=== PATIENT | female | born 1940 | race Caucasian/White ===

== ENCOUNTER → 2017-03-20 | Outpatient (CLI) | payer MEDICARE ==
[~2017-03-20] MED LIST: ACULAR 3ML 3 ML5 ML; ALPHAGAN 5 ML5 ML OP; ANTIVERT25 MG PO; ASCRIPTIN1 TA1 PO; BAYER ASPIRIN C81 MG PO; CALTRATE 600 +1 TA1 PO; CALTRATE 600600 MG PO; CARDIZEM; CARDIZEM CD240 MG PO; CELEXA40 MG PO; CHLORDIAZEPOXID1 CAP PO; CITALOPRAM40 MG PO; DILTIAZEM HYDR PO; GLUCOPHAGE500 MG PO; INDERAL XL80 MG PO; INSULIN SC; K-DUR20 MEQ PO; KEFLEX500 MG PO; LASIX40 MG PO; LUMIGAN 3 ML3 ML OPH; Lasix80 MG PO; METFORMIN500 MG PO; MINIPRESS2 M1; MINIPRESS2 M1 PO; NEURONTIN100 MG PO; NOVOLOG MIX 70/33 ML SC; OCUFLOX 0.3% 5 M5 ML; OMEPRAZOLE; OMEPRAZOLE20 MG PO; PRED FORTE 1 ML1 ML; PRINIVIL40 MG; PRINIVIL40 MG PO; SALICYLIC ACID; SIMVASTATIN20 MG PO; TIAZAC180 MG PO; TOPROL-XL50 MG PO; TRICOR145 MG PO; TYLENOL W/CODEI1 TA4 PO
== END | disposition home or self-care (01) ==
LOC: MAMMO 10:28
DX: Z12.31 Encounter for screening mammogram for malignant neoplasm of breast (principal)

== ENCOUNTER 2017-04-13 17:17 | Inpatient (IN) | payer MEDICARE ==
[~2017-04-13] VITALS: Ht 157.5 cm; Wt 71.8 kg
[2017-04-13 17:36] VITALS: BP 154/70
[2017-04-13 17:55] LABS: HEMATOCRIT 39.3 % (37.0-47.0); HEMOGLOBIN 12.9 g/dl (12.0-16.0); MEAN CELL VOLUME 81.7 fl (81.0-99.0); MEAN CORPUSCULAR HGB 26.8 pg (27.0-31.0); MEAN CORPUSCULAR HGB CONC 32.8 g/dl (33.0-37.0); MEAN PLATELET VOLUME 11.6 fl (9.6-12.3); PLATELET COUNT AUTOMATED 224 10*3/uL (130-400); RED BLOOD COUNT 4.81 10*6/uL (4.10-5.10); RED CELL DISTRI WIDTH 14.6 % (0-14.5); WHITE BLOOD COUNT 11.1 10*3/uL (4.8-10.8)
[2017-04-13 18:16] LABS: ALBUMIN 3.4 gm/dl (3.1-4.5); ALKALINE PHOSPHATASE 107 U/L (45-117); BUN 19 mg/dl (7-24); CHLORIDE 101 mmol/L (98-107); CREATININE 0.93 mg/dL (0.55-1.02); LIPASE 58 U/L (73-393); POTASSIUM 3.6 mmol/L (3.5-5.1); SGOT/AST 24 IU/L (3-35); SGPT/ALT 17 U/L (12-78); SODIUM 138 mmol/L (136-145); TOTAL PROTEIN 8.2 gm/dL (6.4-8.2)
[2017-04-13 18:17] LABS: PLATELET SUFFICIENCY NORMAL (NORMAL); TOTAL CELLS COUNTED 100 #CELLS
[2017-04-13 18:18] LABS: STOMATOCYTE FEW
[2017-04-13 18:19] LABS: TOXIC GRANULATION SLIGHT
--- NOTE | 2017-04-13 18:41 | NUR ---
PATIENT TO CT SCAN AT THIS TIME.
--- NOTE | 2017-04-13 18:41 | NUR ---
VERBAL ORDER TO NOT GIVEN HEPARIN UNTIL ABHISHEK DANIELS HAS SEEN HEAD CT SCAN RESULTS.
[2017-04-13 18:49] LABS: ACT PARTIAL THROMBO TIME 23.8 SECONDS (20.8-31.5); INTERNATIONAL NORM RATIO 1.1 (2.0-3.5)
--- NOTE | 2017-04-13 18:56 | NUR ---
PATIENT EARRINGS ARE IN PATIENTS ROOM IN CONTAINER AFTER SHE RETURNED FROM CT SCAN. ONCOMING NURSE POLO NICHOLAS NOTIFIED.
--- NOTE | 2017-04-13 18:57 | NUR ---
REPORT GIVEN TO POLO NICHOLAS AT THIS TIME. PATIENT RETURNS FROM CT SCAN AND IS IN ROOM.
[2017-04-13 20:00] VITALS: BP 113/50
[2017-04-13 20:06] LABS: BILIRUBIN NEGATIVE (NEGATIVE); BLOOD 2+ (NEGATIVE); CLARITY SL CLOUDY (CLEAR); COLOR YELLOW (YELLOW); GLUCOSE NEGATIVE (NEGATIVE); KETONE TRACE (NEGATIVE); LEUKO ESTERASE 2+ (NEGATIVE); NITRITE POSITIVE (NEGATIVE); PH 5.5 (5.0-9.0); SPECIFIC GRAVITY 1.025 (1.005-1.030); UROBILINOGEN 0.2 E.U./dl (0.2-1.0)
--- NOTE | 2017-04-13 20:12 | NUR ---
CALLED [facility] TO GIVE REPORT, TOLD PT TO BE HELD UNTIL CT REPORT IS IN COMPUTER
--- NOTE | 2017-04-13 20:13 | NUR ---
PATIENT IN GOWN, NO WOUNDS NOTED
[2017-04-13 20:35] LABS: BACTERIA 3+; RBC 16-20 rbc/hpf (0-2); WBC 41-50 wbc/hpf (0-5)
[2017-04-13 21:10] VITALS: BP 156/62
--- NOTE | 2017-04-13 21:10 | NUR ---
A 76, admitted to [facility], under the services of RAFI Dukes DO with a diagnosis of NSTEMI. Chief complaint is DECREASED APPETITE, NOT TAKING HOME MEDICATION, DAUGTER FELT PATIENT WAS CONFUSED AND CALLED EMS. Patient arrived via stretcher from ER. Monitor applied. Initial assessment completed. Vital signs taken and recorded. RAFI DUKES DO notified of admission to the unit. Orders received. See assessment for past medical history, medications and allergies. Patient and/or family oriented to unit. [facility] visitation policy reviewed. Clothing/patient valuable form completed. SHELBY ROMAN
[2017-04-13] MEDS ORDERED: LEVOTHYROXINE50 MCG PO (22:08)
[2017-04-13] MEDS ORDERED: CLOBETASOL PROP15 GM T (22:09)
[2017-04-13] MEDS ORDERED: CARTIA XT240 MG PO (22:09)
[2017-04-13] MEDS ORDERED: NEURONTIN300 MG PO (22:10)
[2017-04-13] MEDS ORDERED: AMARYL2 MG PO (22:10)
--- NOTE | 2017-04-13 22:10 | NUR ---
DR. BAILEY NOTIFIED MED REC IS COMPLETED, PATIENT IS AN INSULIN DIABETIC AND 2ND TROPONIN IS ALSO ELEVATED. NEW ORDERS RECEIVED. COBY BENTON RN
[2017-04-13] MEDS ORDERED: ASPIR 8181 MG PO (22:11)
[2017-04-13] MEDS ORDERED: CALCIUM 600 +1 EAC2 PO (22:12)
[2017-04-13] MEDS ORDERED: GAVISCON LIQUI355 ML PO (22:13)
[2017-04-13] MEDS ORDERED: ATORVASTATIN CA10 M1 PO (22:14)
[2017-04-13] MEDS ORDERED: METFORMIN HCL500 MG PO (22:14)
[2017-04-13] MEDS ORDERED: MECLIZINE HCL25 M2 PO (22:15)
[2017-04-13] MEDS ORDERED: NOVOLOG FL100 UNIT/1 SQ (22:16)
[2017-04-13] MEDS ORDERED: NOVOLOG MI100 UNIT/1 SQ ×2 (22:17→22:18)
[2017-04-13] MEDS ORDERED: OMEPRAZOLE D/R20 MG PO (22:18)
[2017-04-13] MEDS ORDERED: B121000 MCG/1 IM (22:20)
[2017-04-13] MEDS ORDERED: LOSARTAN POTASS50 M1 PO (22:23)
[2017-04-13 23:47] VITALS: BP 157/70
--- NOTE | 2017-04-14 00:30 | NUR ---
HEART RATE AND RESPIRATIONS INCREASING. TEMP OBTAINED, [address] BAILEY NOTIFIED OF CLINICAL CHANGES AND ELEVATED TROPONIN. NEW ORDERS RECEIVED. COBY BENTON RN
--- NOTE | 2017-04-14 01:20 | NUR ---
PT ESCORTED TO CT VIA WHEELCHAIR. MAX ASSIST TO TRANSFER TO WHEELCHAIR. PATIENT SLOW WITH VERBAL RESPONSES AND GENERALIZED WEAKNESS NOTED. COBY BENTON RN
--- NOTE | 2017-04-14 02:00 | NUR ---
POX 89-92% O2 @ 2LPM VIA NC APPLIED, POX INCREASED TO 96% WILL MONITOR. COBY BENTON RN
--- NOTE | 2017-04-14 02:16 | NUR ---
TEMP 99.8 ORALLY. HEART RATE LOW 100S, RESPIRATIONS 14-20. PATIENT MORE ALERT AND LUCID AT THIS TIME. TYLENOL EFFECTIVE FOR ELEVATED TEMP. WILL MONITOR. COBY BENTON RN
[2017-04-14 03:35] VITALS: BP 150/59
[2017-04-14 03:59] LABS: HEMATOCRIT 36.1 % (37.0-47.0); HEMOGLOBIN 11.9 g/dl (12.0-16.0); MEAN CELL VOLUME 82.2 fl (81.0-99.0); MEAN CORPUSCULAR HGB 27.1 pg (27.0-31.0); MEAN PLATELET VOLUME 12.1 fl (9.6-12.3); PLATELET COUNT AUTOMATED 188 10*3/uL (130-400); RED BLOOD COUNT 4.39 10*6/uL (4.10-5.10); RED CELL DISTRI WIDTH 14.6 % (0-14.5)
[2017-04-14 04:03] LABS: INTERNATIONAL NORM RATIO 1.1 (2.0-3.5)
--- NOTE | 2017-04-14 04:05 | NUR ---
PTT 32.2. HEPARIN DRIP INCREASED BY 2UNITS/KG/HR. NEW RATE 14 UNITS/HG/HOUR, 10.1 CC/HR. NEXT PTT ORDERED URGENTLY AT 1000. COBY BENTON RN
[2017-04-14 04:18] LABS: PLATELET SUFFICIENCY NORMAL (NORMAL); TOTAL CELLS COUNTED 100 #CELLS
[2017-04-14 04:26] LABS: ALBUMIN 2.9 gm/dl (3.1-4.5); BUN 17 mg/dl (7-24); CHLORIDE 101 mmol/L (98-107); CHOLESTEROL 128 mg/dL (<200); CREATININE 0.72 mg/dL (0.55-1.02); PHOSPHOROUS 2.7 mg/dL (2.5-4.9); POTASSIUM 3.2 mmol/L (3.5-5.1); SGOT/AST 18 IU/L (3-35); SGPT/ALT 15 U/L (12-78); SODIUM 139 mmol/L (136-145); TOTAL PROTEIN 7.2 gm/dL (6.4-8.2); TRIGLYCERIDES 179 mg/dl (<150); VLDL CHOLESTEROL 36 mg/dL (6-40)
[2017-04-14 04:32] LABS: ALKALINE PHOSPHATASE 90 U/L (45-117); FREE T4 1.12 ng/dl (0.76-1.46); HDL CHOLESTEROL 30 mg/dl (40-60); LDL CHOLESTEROL 62 mg/dL (9-159)
[2017-04-14 07:03] LABS: VITAMIN D, 25-HYDROXY 15.3 ng/mL (30-100)
--- NOTE | 2017-04-14 07:30 | NUR ---
DR. Stephanie WALKER NOTIFIED OF CT ABD/PELVIS REPORT. NO NEW ORDERS RECEIVED AT THIS TIME. COBY BENTON RN
[2017-04-14 08:00] VITALS: BP 145/68
--- NOTE | 2017-04-14 09:50 | NUR ---
REPORT TO CED AT [facility]
[2017-04-14] MEDS ORDERED: LOPRESSOR25 MG PO (10:14)
--- NOTE | 2017-04-14 10:41 | NUR ---
HEPARIN TITRATED TO 16 UNITS/KG
--- NOTE | 2017-04-14 11:23 | NUR ---
PT DISCHARGED TO [facility] TEAM HEPARIN DRIP INFUSING
== END 2017-04-14 11:23 | disposition short-term general hospital (02) | DRG 871 ==
LOC: ED 17:17 → EDHOLD 19:11 → ICCU 19:31
PROVIDERS: Hospitalist; Nurse Practitioner Family; ADMIT Internal Medicine
DX: A41.9 Sepsis, unspecified organism (principal); I21.4 Non-ST elevation (NSTEMI) myocardial infarction; E44.0 Moderate protein-calorie malnutrition; N12 Tubulo-interstitial nephritis, not specified as acute or chronic; N13.8 Other obstructive and reflux uropathy; R65.20 Severe sepsis without septic shock; E11.42 Type 2 diabetes mellitus with diabetic polyneuropathy; E11.65 Type 2 diabetes mellitus with hyperglycemia; E03.9 Hypothyroidism, unspecified; E78.5 Hyperlipidemia, unspecified; I10 Essential (primary) hypertension; E66.3 Overweight; N20.0 Calculus of kidney; B95.2 Enterococcus as the cause of diseases classified elsewhere; E87.6 Hypokalemia; E55.9 Vitamin D deficiency, unspecified; K57.90 Diverticulosis of intestine, part unspecified, without perforation or abscess without bleeding; E53.8 Deficiency of other specified B group vitamins; Z79.82 Long term (current) use of aspirin; Z79.4 Long term (current) use of insulin; Z88.1 Allergy status to other antibiotic agents; Z79.899 Other long term (current) drug therapy; Z82.3 Family history of stroke; Z90.710 Acquired absence of both cervix and uterus; Z98.51 Tubal ligation status; Z82.49 Family history of ischemic heart disease and other diseases of the circulatory system; Z83.3 Family history of diabetes mellitus; Z68.28 Body mass index [BMI] 28.0-28.9, adult

== ENCOUNTER → 2018-10-22 | Outpatient (CLI) | payer MEDICARE ==
[~2018-10-22] MED LIST changes: +AMARYL2 MG PO; +ASPIR 8181 MG PO; +ATORVASTATIN CA10 M1 PO; +B121000 MCG/1 IM; +CALCIUM 600 +1 EAC2 PO; +CARTIA XT240 MG PO; +CLOBETASOL PROP15 GM T; +GAVISCON LIQUI355 ML PO; +LEVOTHYROXINE50 MCG PO; +LOPRESSOR25 MG PO; +LOSARTAN POTASS50 M1 PO; +MECLIZINE HCL25 M2 PO; +METFORMIN HCL500 MG PO; +NEURONTIN300 MG PO; +NOVOLOG FL100 UNIT/1 SQ; +NOVOLOG MI100 UNIT/1 SQ; +OMEPRAZOLE D/R20 MG PO
== END | disposition home or self-care (01) ==
LOC: LAB 15:11
DX: H53.2 Diplopia (principal)

== ENCOUNTER 2020-03-17 00:09 | Inpatient (IN) | payer MEDICARE ==
[~2020-03-17] VITALS: Ht 157.4 cm; Wt 73.0 kg
[2020-03-17] VITALS (17 sets, daily range): BP systolic 103–180; BP diastolic 31–74
[2020-03-17 00:43] LABS: MEAN CELL VOLUME 123.9 fl (81.0-99.0); MEAN CORPUSCULAR HGB 38.4 pg (27.0-31.0); PLATELET COUNT AUTOMATED 345 10*3/uL (130-400); RED BLOOD COUNT 1.59 10*6/uL (4.10-5.10); WHITE BLOOD COUNT 24.3 10*3/uL (4.8-10.8)
[2020-03-17 00:49] LABS: HEMATOCRIT 19.7 % (37.0-47.0)
[2020-03-17 01:00] LABS: ALBUMIN 3.7 gm/dl (3.1-4.5); ALKALINE PHOSPHATASE 64 U/L (45-117); BUN 38 mg/dl (7-24); CHLORIDE 106 mmol/L (98-107); POTASSIUM 4.3 mmol/L (3.5-5.1); SGOT/AST 9 IU/L (3-35); SGPT/ALT 14 U/L (12-78); SODIUM 139 mmol/L (136-145); TOTAL PROTEIN 8.2 gm/dL (6.4-8.2)
[2020-03-17 01:01] LABS: TROPONIN I < 0.015 ng/ml (<0.045)
[2020-03-17 01:03] LABS: PLATELET SUFFICIENCY NORMAL (NORMAL); TOTAL CELLS COUNTED 100 #CELLS
[2020-03-17 01:16] LABS: ACT PARTIAL THROMBO TIME 32.8 SECONDS (20.0-32.1); INTERNATIONAL NORM RATIO 2.7 (2.0-3.5)
[2020-03-17 07:24] LABS: HEMATOCRIT 25.8 % (37.0-47.0); MEAN CORPUSCULAR HGB 36.2 pg (27.0-31.0); MEAN CORPUSCULAR HGB CONC 31.4 g/dl (33.0-37.0); MEAN PLATELET VOLUME 11.4 fl (9.6-12.3); PLATELET COUNT AUTOMATED 334 10*3/uL (130-400); RED BLOOD COUNT 2.24 10*6/uL (4.10-5.10); RED CELL DISTRI WIDTH 24.4 % (0-14.5); WHITE BLOOD COUNT 28.9 10*3/uL (4.8-10.8)
[2020-03-17 07:25] LABS: MEAN CELL VOLUME 115.2 fl (81.0-99.0)
[2020-03-17 08:16] LABS: OVALOCYTES FEW; PLATELET SUFFICIENCY NORMAL (NORMAL); ROULEAUX SLIGHT; TOTAL CELLS COUNTED 100 #CELLS
[2020-03-17 08:17] LABS: BURR CELLS FEW; SCHISTOCYTES FEW
[2020-03-17 12:27] LABS: BILIRUBIN Negative (Negative); BLOOD 2+ (Negative); CLARITY Turbid (Clear); COLOR Yellow (Yellow); GLUCOSE Negative (Negative); KETONE Negative (Negative); LEUKO ESTERASE 3+ (Negative); NITRITE Positive (Negative); UROBILINOGEN 0.2 E.U./dl (0.0-1.0)
[2020-03-17 12:32] LABS: BACTERIA 4+; RBC TNTC rbc/hpf (0-2)
[2020-03-17 12:33] LABS: WBC TNTC wbc/hpf (0-5)
[2020-03-17 14:52] LABS: CREATININE 1.19 mg/dL (0.55-1.02); POTASSIUM 3.9 mmol/L (3.5-5.1)
[2020-03-17 15:51] LABS: INTERNATIONAL NORM RATIO 2.7 (2.0-3.5)
[2020-03-18] VITALS (8 sets, daily range): BP systolic 123–160; BP diastolic 45–82
[2020-03-18 07:02] LABS: HEMATOCRIT 22.6 % (37.0-47.0); MEAN CELL VOLUME 114.1 fl (81.0-99.0); MEAN CORPUSCULAR HGB 35.4 pg (27.0-31.0); MEAN PLATELET VOLUME 11.2 fl (9.6-12.3); PLATELET COUNT AUTOMATED 283 10*3/uL (130-400); RED BLOOD COUNT 1.98 10*6/uL (4.10-5.10); RED CELL DISTRI WIDTH 24.6 % (0-14.5); WHITE BLOOD COUNT 34.4 10*3/uL (4.8-10.8)
[2020-03-18 07:27] LABS: CREATININE 1.37 mg/dL (0.55-1.02); POTASSIUM 4.1 mmol/L (3.5-5.1)
[2020-03-18 07:56] LABS: PLATELET SUFFICIENCY NORMAL (NORMAL); TOTAL CELLS COUNTED 100 #CELLS
[2020-03-18] MEDS ORDERED: ATORVASTATIN CA40 M1 PO (22:39)
[2020-03-18] MEDS ORDERED: EUTHYROX50 MCG PO (22:39)
[2020-03-18] MEDS ORDERED: FUROSEMIDE20 M1 PO (22:41)
[2020-03-18] MEDS ORDERED: OMEPRAZOLE MAGN20 MG PO (22:43)
[2020-03-18] MEDS ORDERED: WARFARIN SOD2 MG PO (22:44)
[2020-03-18] MEDS ORDERED: METOPROLOL TART50 M1 PO (22:45)
[2020-03-18] MEDS ORDERED: NEURONTIN300 MG PO (23:04)
[2020-03-19] VITALS (9 sets, daily range): BP systolic 136–179; BP diastolic 58–78
[2020-03-19 05:50] LABS: CREATININE 1.26 mg/dL (0.55-1.02)
[2020-03-19 06:30] LABS: HEMATOCRIT 21.6 % (37.0-47.0); MEAN CELL VOLUME 116.1 fl (81.0-99.0); MEAN CORPUSCULAR HGB 35.5 pg (27.0-31.0); MEAN CORPUSCULAR HGB CONC 30.6 g/dl (33.0-37.0); MEAN PLATELET VOLUME 12.6 fl (9.6-12.3); PLATELET COUNT AUTOMATED 281 10*3/uL (130-400); RED BLOOD COUNT 1.86 10*6/uL (4.10-5.10); RED CELL DISTRI WIDTH 24.3 % (0-14.5); WHITE BLOOD COUNT 30.1 10*3/uL (4.8-10.8)
[2020-03-19 07:07] LABS: PLATELET SUFFICIENCY NORMAL (NORMAL); TOTAL CELLS COUNTED 100 #CELLS; TOXIC GRANULATION SLIGHT
[2020-03-19 07:08] LABS: ROULEAUX MODERATE; STOMATOCYTE FEW
[2020-03-19 19:45] LABS: HEMATOCRIT 25.6 % (37.0-47.0); MEAN CORPUSCULAR HGB 33.9 pg (27.0-31.0); PLATELET COUNT AUTOMATED 286 10*3/uL (130-400); RED BLOOD COUNT 2.42 10*6/uL (4.10-5.10); RED CELL DISTRI WIDTH 27.1 % (0-14.5)
[2020-03-19 19:49] LABS: MEAN CELL VOLUME 105.8 fl (81.0-99.0)
[2020-03-19 20:20] LABS: TOTAL CELLS COUNTED 100 #CELLS
[2020-03-19 20:21] LABS: PLATELET SUFFICIENCY NORMAL (NORMAL)
[2020-03-19 20:22] LABS: BURR CELLS FEW
[2020-03-20] VITALS: BP 128/67
[2020-03-20 05:51] LABS: CREATININE 1.14 mg/dL (0.55-1.02); POTASSIUM 4.1 mmol/L (3.5-5.1)
[2020-03-20 06:04] LABS: HEMATOCRIT 24.9 % (37.0-47.0); MEAN CELL VOLUME 108.3 fl (81.0-99.0); MEAN CORPUSCULAR HGB 34.3 pg (27.0-31.0); MEAN CORPUSCULAR HGB CONC 31.7 g/dl (33.0-37.0); MEAN PLATELET VOLUME 12.8 fl (9.6-12.3); PLATELET COUNT AUTOMATED 270 10*3/uL (130-400); RED CELL DISTRI WIDTH 27.1 % (0-14.5); WHITE BLOOD COUNT 18.1 10*3/uL (4.8-10.8)
[2020-03-20 06:30] LABS: PLATELET SUFFICIENCY NORMAL (NORMAL); TOTAL CELLS COUNTED 100 #CELLS
[2020-03-20 06:31] LABS: POLYCHROMASIA SLIGHT; ROULEAUX SLIGHT
[2020-03-20 07:45] VITALS: BP 168/74
[2020-03-20 12:00] VITALS: BP 174/70
[2020-03-20 16:00] VITALS: BP 159/70; BP 164/68
[2020-03-20 20:00] VITALS: BP 162/84
[2020-03-21 04:00] VITALS: BP 162/84
[2020-03-21 06:37] LABS: HEMATOCRIT 27.7 % (37.0-47.0); MEAN CELL VOLUME 110.4 fl (81.0-99.0); MEAN CORPUSCULAR HGB 33.9 pg (27.0-31.0); MEAN CORPUSCULAR HGB CONC 30.7 g/dl (33.0-37.0); MEAN PLATELET VOLUME 12.3 fl (9.6-12.3); PLATELET COUNT AUTOMATED 246 10*3/uL (130-400); RED BLOOD COUNT 2.51 10*6/uL (4.10-5.10); RED CELL DISTRI WIDTH 25.6 % (0-14.5); WHITE BLOOD COUNT 13.4 10*3/uL (4.8-10.8)
[2020-03-21 07:00] LABS: PLATELET SUFFICIENCY NORMAL (NORMAL); POLYCHROMASIA SLIGHT; TOTAL CELLS COUNTED 100 #CELLS
[2020-03-21 07:01] LABS: ROULEAUX SLIGHT; STOMATOCYTE FEW
[2020-03-21 08:10] LABS: CHLORIDE 114 mmol/L (98-107); CREATININE 0.94 mg/dL (0.55-1.02); POTASSIUM 3.6 mmol/L (3.5-5.1); SODIUM 145 mmol/L (136-145)
[2020-03-21 08:11] LABS: BUN 25 mg/dl (7-24)
[2020-03-21 08:12] VITALS: BP 179/73
[2020-03-21 10:35] LABS: INTERNATIONAL NORM RATIO 4.1 (2.0-3.5)
[2020-03-21 12:00] VITALS: BP 162/70
[2020-03-21 15:30] LABS: INTERNATIONAL NORM RATIO 4.2 (2.0-3.5)
[2020-03-21 16:00] VITALS: BP 165/74
[2020-03-21 20:00] VITALS: BP 173/81
[2020-03-22] VITALS: BP 170/63
[2020-03-22 06:24] LABS: ALBUMIN 2.7 gm/dl (3.1-4.5); ALKALINE PHOSPHATASE 66 U/L (45-117); BUN 22 mg/dl (7-24); CHLORIDE 111 mmol/L (98-107); CREATININE 0.93 mg/dL (0.55-1.02); POTASSIUM 3.6 mmol/L (3.5-5.1); SGOT/AST 12 IU/L (3-35); SGPT/ALT 14 U/L (12-78); SODIUM 144 mmol/L (136-145); TOTAL PROTEIN 6.8 gm/dL (6.4-8.2)
[2020-03-22 06:35] LABS: MEAN CORPUSCULAR HGB 33.3 pg (27.0-31.0); RED BLOOD COUNT 2.58 10*6/uL (4.10-5.10)
[2020-03-22 06:36] LABS: HEMATOCRIT 28.2 % (37.0-47.0); MEAN CELL VOLUME 109.3 fl (81.0-99.0); MEAN CORPUSCULAR HGB CONC 30.5 g/dl (33.0-37.0); MEAN PLATELET VOLUME 12.1 fl (9.6-12.3); PLATELET COUNT AUTOMATED 246 10*3/uL (130-400); RED CELL DISTRI WIDTH 23.3 % (0-14.5); WHITE BLOOD COUNT 13.4 10*3/uL (4.8-10.8)
[2020-03-22 06:42] LABS: INTERNATIONAL NORM RATIO 4.4 (2.0-3.5)
[2020-03-22 07:18] LABS: ATYPICAL LYMPHS 1 % (0-0); PLATELET SUFFICIENCY NORMAL (NORMAL); TOTAL CELLS COUNTED 100 #CELLS
[2020-03-22 08:00] VITALS: BP 136/52
[2020-03-22 12:00] VITALS: BP 137/53
[2020-03-22 16:00] VITALS: BP 152/67
[2020-03-22 20:00] VITALS: BP 159/73
[2020-03-23] VITALS (9 sets, daily range): BP systolic 98–147; BP diastolic 38–92
[2020-03-23 07:17] LABS: INTERNATIONAL NORM RATIO 1.2 (2.0-3.5)
[2020-03-23 08:14] LABS: HEMATOCRIT 28.6 % (37.0-47.0); MEAN CELL VOLUME 107.9 fl (81.0-99.0); MEAN CORPUSCULAR HGB 32.8 pg (27.0-31.0); MEAN CORPUSCULAR HGB CONC 30.4 g/dl (33.0-37.0); MEAN PLATELET VOLUME 12.4 fl (9.6-12.3); PLATELET COUNT AUTOMATED 245 10*3/uL (130-400); RED BLOOD COUNT 2.65 10*6/uL (4.10-5.10); RED CELL DISTRI WIDTH 22.3 % (0-14.5); WHITE BLOOD COUNT 15.2 10*3/uL (4.8-10.8)
[2020-03-23 08:53] LABS: PLATELET SUFFICIENCY NORMAL (NORMAL); TOTAL CELLS COUNTED 100 #CELLS
[2020-03-24] VITALS: BP 129/42
[2020-03-24 06:09] LABS: BUN 20 mg/dl (7-24); CHLORIDE 108 mmol/L (98-107); CREATININE 0.94 mg/dL (0.55-1.02); POTASSIUM 2.9 mmol/L (3.5-5.1); SODIUM 143 mmol/L (136-145)
[2020-03-24 06:16] LABS: HEMATOCRIT 26.5 % (37.0-47.0); MEAN CELL VOLUME 108.6 fl (81.0-99.0); MEAN CORPUSCULAR HGB 33.6 pg (27.0-31.0); MEAN CORPUSCULAR HGB CONC 30.9 g/dl (33.0-37.0); MEAN PLATELET VOLUME 12.5 fl (9.6-12.3); PLATELET COUNT AUTOMATED 231 10*3/uL (130-400); RED BLOOD COUNT 2.44 10*6/uL (4.10-5.10); RED CELL DISTRI WIDTH 21.5 % (0-14.5)
[2020-03-24 06:23] LABS: INTERNATIONAL NORM RATIO 1.1 (2.0-3.5)
[2020-03-24 06:43] LABS: TOTAL CELLS COUNTED 100 #CELLS
[2020-03-24 06:44] LABS: OVALOCYTES FEW; PLATELET SUFFICIENCY NORMAL (NORMAL); STOMATOCYTE FEW
[2020-03-24 08:00] VITALS: BP 130/52
[2020-03-24 12:00] VITALS: BP 128/56
[2020-03-24 16:00] VITALS: BP 116/64
[2020-03-24 20:00] VITALS: BP 154/58
[2020-03-25] VITALS: BP 144/53
[2020-03-25 06:48] LABS: HEMATOCRIT 25.5 % (37.0-47.0); MEAN CELL VOLUME 107.1 fl (81.0-99.0); MEAN CORPUSCULAR HGB CONC 31.8 g/dl (33.0-37.0); MEAN PLATELET VOLUME 11.4 fl (9.6-12.3); PLATELET COUNT AUTOMATED 204 10*3/uL (130-400); RED BLOOD COUNT 2.38 10*6/uL (4.10-5.10); RED CELL DISTRI WIDTH 21.3 % (0-14.5); WHITE BLOOD COUNT 12.2 10*3/uL (4.8-10.8)
[2020-03-25 06:59] LABS: INTERNATIONAL NORM RATIO 1.1 (2.0-3.5)
[2020-03-25 07:07] LABS: BUN 14 mg/dl (7-24); CHLORIDE 109 mmol/L (98-107); CREATININE 0.81 mg/dL (0.55-1.02); POTASSIUM 3.3 mmol/L (3.5-5.1); SODIUM 142 mmol/L (136-145)
[2020-03-25 07:41] LABS: PLATELET SUFFICIENCY NORMAL (NORMAL); STOMATOCYTE FEW; TOTAL CELLS COUNTED 100 #CELLS
[2020-03-25 07:42] LABS: OVALOCYTES FEW; TOXIC GRANULATION SLIGHT
[2020-03-25 08:15] VITALS: BP 132/62
[2020-03-25 12:00] VITALS: BP 148/54
[2020-03-25 16:00] VITALS: BP 149/74
[2020-03-25 20:00] VITALS: BP 144/51
[2020-03-26] VITALS: BP 154/53
[2020-03-26 07:14] LABS: HEMATOCRIT 25.6 % (37.0-47.0); MEAN CELL VOLUME 109.4 fl (81.0-99.0); MEAN CORPUSCULAR HGB 33.8 pg (27.0-31.0); MEAN CORPUSCULAR HGB CONC 30.9 g/dl (33.0-37.0); MEAN PLATELET VOLUME 12.1 fl (9.6-12.3); PLATELET COUNT AUTOMATED 190 10*3/uL (130-400); RED BLOOD COUNT 2.34 10*6/uL (4.10-5.10); RED CELL DISTRI WIDTH 21.6 % (0-14.5); WHITE BLOOD COUNT 9.4 10*3/uL (4.8-10.8)
[2020-03-26 07:26] LABS: INTERNATIONAL NORM RATIO 1.1 (2.0-3.5)
[2020-03-26 07:34] LABS: BUN 13 mg/dl (7-24); CHLORIDE 108 mmol/L (98-107); POTASSIUM 4.2 mmol/L (3.5-5.1); SODIUM 141 mmol/L (136-145)
[2020-03-26 07:36] LABS: OVALOCYTES FEW; PLATELET SUFFICIENCY NORMAL (NORMAL); ROULEAUX SLIGHT; STOMATOCYTE FEW; TOTAL CELLS COUNTED 100 #CELLS
[2020-03-26 07:37] LABS: CREATININE 0.87 mg/dL (0.55-1.02); TOXIC GRANULATION SLIGHT
[2020-03-26 08:00] VITALS: BP 137/52
[2020-03-26 12:00] VITALS: BP 131/44
[2020-03-26 16:00] VITALS: BP 126/51
[2020-03-26 20:00] VITALS: BP 149/51
[2020-03-27] VITALS: BP 152/52
[2020-03-27 07:31] LABS: HEMATOCRIT 25.7 % (37.0-47.0); MEAN CELL VOLUME 109.8 fl (81.0-99.0); MEAN CORPUSCULAR HGB 33.8 pg (27.0-31.0); MEAN CORPUSCULAR HGB CONC 30.7 g/dl (33.0-37.0); MEAN PLATELET VOLUME 12.6 fl (9.6-12.3); PLATELET COUNT AUTOMATED 184 10*3/uL (130-400); RED BLOOD COUNT 2.34 10*6/uL (4.10-5.10); RED CELL DISTRI WIDTH 21.2 % (0-14.5); WHITE BLOOD COUNT 7.5 10*3/uL (4.8-10.8)
[2020-03-27 07:40] LABS: INTERNATIONAL NORM RATIO 1.1 (2.0-3.5)
[2020-03-27 07:48] LABS: BUN 13 mg/dl (7-24); CHLORIDE 106 mmol/L (98-107); CREATININE 0.83 mg/dL (0.55-1.02); POTASSIUM 3.8 mmol/L (3.5-5.1); SODIUM 139 mmol/L (136-145)
[2020-03-27 07:55] LABS: PLATELET SUFFICIENCY NORMAL (NORMAL); ROULEAUX SLIGHT; STOMATOCYTE FEW; TOTAL CELLS COUNTED 100 #CELLS; TOXIC GRANULATION SLIGHT
[2020-03-27 08:00] VITALS: BP 124/47
[2020-03-27 12:00] VITALS: BP 118/46
[2020-03-27 16:00] VITALS: BP 119/43
[2020-03-27 20:00] VITALS: BP 131/44
[2020-03-28] VITALS: BP 118/43
[2020-03-28 07:05] LABS: BASO % 0.1 % (0.0-1.0); EOS # 0.2 10*3/uL (0.0-0.4); EOS % 3.1 % (1.0-4.0); HEMATOCRIT 24.2 % (37.0-47.0); LYMPH # 1.3 10*3/uL (1.3-4.4); LYMPH % 17.4 % (27.0-41.0); MEAN CORPUSCULAR HGB 34.5 pg (27.0-31.0); MEAN CORPUSCULAR HGB CONC 31.4 g/dl (33.0-37.0); MEAN PLATELET VOLUME 12.4 fl (9.6-12.3); MONO # 1.7 10*3/uL (0.1-1.0); MONO % 23.2 % (3.0-9.0); NEUT # 3.7 10*3/uL (2.3-7.9); NEUT % 50.4 % (47.0-73.0); PLATELET COUNT AUTOMATED 184 10*3/uL (130-400); RED CELL DISTRI WIDTH 21.2 % (0-14.5); WHITE BLOOD COUNT 7.4 10*3/uL (4.8-10.8)
[2020-03-28 07:24] LABS: INTERNATIONAL NORM RATIO 1.4 (2.0-3.5)
[2020-03-28 08:00] VITALS: BP 119/42
[2020-03-28 08:24] LABS: ROULEAUX SLIGHT; TOTAL CELLS COUNTED 100 #CELLS
[2020-03-28 08:25] LABS: PLATELET SUFFICIENCY NORMAL (NORMAL); POLYCHROMASIA SLIGHT
[2020-03-28 12:00] VITALS: BP 118/50
[2020-03-28 16:00] VITALS: BP 104/82
[2020-03-28 20:00] VITALS: BP 132/97
[2020-03-29] VITALS (11 sets, daily range): BP systolic 120–144; BP diastolic 38–50
[2020-03-29 07:04] LABS: HEMATOCRIT 23.1 % (37.0-47.0); MEAN CORPUSCULAR HGB 33.8 pg (27.0-31.0); MEAN CORPUSCULAR HGB CONC 30.7 g/dl (33.0-37.0); MEAN PLATELET VOLUME 12.5 fl (9.6-12.3); PLATELET COUNT AUTOMATED 162 10*3/uL (130-400); RED CELL DISTRI WIDTH 20.8 % (0-14.5)
[2020-03-29 07:12] LABS: INTERNATIONAL NORM RATIO 1.9 (2.0-3.5)
[2020-03-29 07:37] LABS: PLATELET SUFFICIENCY NORMAL (NORMAL); TOTAL CELLS COUNTED 100 #CELLS
[2020-03-30] VITALS: BP 146/52
[2020-03-30 06:37] LABS: HEMATOCRIT 26.4 % (37.0-47.0); MEAN CORPUSCULAR HGB 33.5 pg (27.0-31.0); MEAN CORPUSCULAR HGB CONC 31.8 g/dl (33.0-37.0); MEAN PLATELET VOLUME 12.6 fl (9.6-12.3); PLATELET COUNT AUTOMATED 157 10*3/uL (130-400); RED BLOOD COUNT 2.51 10*6/uL (4.10-5.10); RED CELL DISTRI WIDTH 20.7 % (0-14.5); WHITE BLOOD COUNT 5.1 10*3/uL (4.8-10.8)
[2020-03-30 06:39] LABS: MEAN CELL VOLUME 105.2 fl (81.0-99.0)
[2020-03-30 06:41] LABS: INTERNATIONAL NORM RATIO 2.2 (2.0-3.5)
[2020-03-30 06:56] LABS: PLATELET SUFFICIENCY NORMAL (NORMAL); TOTAL CELLS COUNTED 100 #CELLS
[2020-03-30 08:00] VITALS: BP 142/50
[2020-03-30] MEDS ORDERED: JANTOVEN4 M1 PO (10:54)
[2020-03-30 12:00] VITALS: BP 135/43
[2020-03-30] MEDS ORDERED: PANTOPRAZOLE SO40 MG PO (13:59)
== END 2020-03-30 15:00 | disposition home or self-care (01) | DRG 871 ==
LOC: ED 00:09 → 4E 01:54 → EDHOLD 01:54 → 4E 18:04
PROVIDERS: Hospitalist; Internal Medicine; Registered Nurse; Student in an Organized Health Care Education/Training Program; ADMIT Family Medicine; ATTEND Family Medicine
PROC: 30233N1 Transfusion of Nonautologous Red Blood Cells into Peripheral Vein, Percutaneous Approach (ICD-10-PCS; principal; 2020-03-17)
PROC: 0DB78ZX Excision of Stomach, Pylorus, Via Natural or Artificial Opening Endoscopic, Diagnostic (ICD-10-PCS; 2020-03-18)
PROC: 0DJD8ZZ Inspection of Lower Intestinal Tract, Via Natural or Artificial Opening Endoscopic (ICD-10-PCS; 2020-03-23)
DX: A41.9 Sepsis, unspecified organism (principal); J96.01 Acute respiratory failure with hypoxia; N17.0 Acute kidney failure with tubular necrosis; G93.41 Metabolic encephalopathy; K29.71 Gastritis, unspecified, with bleeding; K25.4 Chronic or unspecified gastric ulcer with hemorrhage; K20.91 Esophagitis, unspecified with bleeding; K57.91 Diverticulosis of intestine, part unspecified, without perforation or abscess with bleeding; D62 Acute posthemorrhagic anemia; N39.0 Urinary tract infection, site not specified; I16.1 Hypertensive emergency; E87.0 Hyperosmolality and hypernatremia; I10 Essential (primary) hypertension; E78.5 Hyperlipidemia, unspecified; E03.9 Hypothyroidism, unspecified; E66.3 Overweight; R65.20 Severe sepsis without septic shock; R79.1 Abnormal coagulation profile; E87.6 Hypokalemia; I25.10 Atherosclerotic heart disease of native coronary artery without angina pectoris; E11.65 Type 2 diabetes mellitus with hyperglycemia; K44.9 Diaphragmatic hernia without obstruction or gangrene; E11.42 Type 2 diabetes mellitus with diabetic polyneuropathy; Z20.828 Contact with and (suspected) exposure to other viral communicable diseases; Z79.4 Long term (current) use of insulin; Z95.1 Presence of aortocoronary bypass graft; Z88.1 Allergy status to other antibiotic agents; Z88.8 Allergy status to other drugs, medicaments and biological substances; I25.2 Old myocardial infarction; Z90.710 Acquired absence of both cervix and uterus; Z98.51 Tubal ligation status; Z83.3 Family history of diabetes mellitus; Z82.49 Family history of ischemic heart disease and other diseases of the circulatory system; Z82.3 Family history of stroke; Z79.82 Long term (current) use of aspirin; Z79.899 Other long term (current) drug therapy; Z87.442 Personal history of urinary calculi; Z68.28 Body mass index [BMI] 28.0-28.9, adult

== ENCOUNTER 2020-03-30 18:27 | Observation (INO) | payer MEDICARE ==
[~2020-03-30] VITALS: Ht 157.5 cm; Wt 71.4 kg
[~2020-03-30 18:27] MED LIST changes: +ATORVASTATIN CA40 M1 PO; +EUTHYROX50 MCG PO; +FUROSEMIDE20 M1 PO; +JANTOVEN4 M1 PO; +METOPROLOL TART50 M1 PO; +OMEPRAZOLE MAGN20 MG PO; +PANTOPRAZOLE SO40 MG PO; +WARFARIN SOD2 MG PO
[2020-03-30 18:28] VITALS: BP 156/50
[2020-03-30 19:12] LABS: HEMATOCRIT 25.2 % (37.0-47.0); MEAN CELL VOLUME 103.7 fl (81.0-99.0); MEAN CORPUSCULAR HGB 32.5 pg (27.0-31.0); MEAN CORPUSCULAR HGB CONC 31.3 g/dl (33.0-37.0); MEAN PLATELET VOLUME 11.6 fl (9.6-12.3); PLATELET COUNT AUTOMATED 141 10*3/uL (130-400); RED BLOOD COUNT 2.43 10*6/uL (4.10-5.10); RED CELL DISTRI WIDTH 20.3 % (0-14.5); WHITE BLOOD COUNT 4.5 10*3/uL (4.8-10.8)
[2020-03-30 19:29] LABS: ALBUMIN 2.7 gm/dl (3.1-4.5); ALKALINE PHOSPHATASE 80 U/L (45-117); BUN 19 mg/dl (7-24); CHLORIDE 105 mmol/L (98-107); CREATININE 0.85 mg/dL (0.55-1.02); POTASSIUM 4.7 mmol/L (3.5-5.1); SGOT/AST 55 IU/L (3-35); SGPT/ALT 78 U/L (12-78); SODIUM 139 mmol/L (136-145); TOTAL PROTEIN 7.1 gm/dL (6.4-8.2)
[2020-03-30 19:48] LABS: TOTAL CELLS COUNTED 100 #CELLS
[2020-03-30 19:50] LABS: PLATELET SUFFICIENCY NORMAL (NORMAL); STOMATOCYTE FEW
[2020-03-30 19:52] LABS: MICROCYTOSIS SLIGHT
[2020-03-30 20:00] VITALS: BP 174/55
[2020-03-30 21:00] VITALS: BP 174/55
[2020-03-30 22:03] LABS: INTERNATIONAL NORM RATIO 2.2 (2.0-3.5)
--- NOTE | 2020-03-30 22:16 | NUR ---
PT. RESTING IN BED WITH EYES CLOSED. RR EASY AND NON-LABORED. CALL LIGHT WITHIN REACH. WILL CONTINUE TO MONITOR.
[2020-03-30 23:00] VITALS: BP 158/70
[2020-03-31] VITALS (10 sets, daily range): BP systolic 134–177; BP diastolic 49–84
--- NOTE | 2020-03-31 01:18 | NUR ---
INSERTED 16G CLEMENTE CATHETER. PATIENT IS INCONTINENT.
[2020-03-31 01:35] LABS: BILIRUBIN Negative (Negative); BLOOD Negative (Negative); CLARITY Clear (Clear); COLOR Yellow (Yellow); GLUCOSE Negative (Negative); KETONE Negative (Negative); LEUKO ESTERASE Trace (Negative); NITRITE Negative (Negative); PH 5.5 (4.5-8.0); UROBILINOGEN 0.2 E.U./dl (0.0-1.0)
[2020-03-31 02:14] LABS: BACTERIA TRACE; EPITHELIAL CELLS 21-30; WBC 0-2 wbc/hpf (0-5)
--- NOTE | 2020-03-31 05:47 | NUR ---
PT RESTING IN BED WITH EYES CLOSED. NO ACUTE DISTESS. RESPS EASY AND NON LABORED.
--- NOTE | 2020-03-31 08:13 | NUR ---
PT IS AWAKE WITH NO COMPLAINTS, RESPIRATIONS EASY AND NON LABORED. BREAKFAST TRAY ORDERED.
[2020-03-31 09:29] LABS: HEMATOCRIT 25.6 % (37.0-47.0); MEAN CELL VOLUME 102.8 fl (81.0-99.0); MEAN CORPUSCULAR HGB 32.9 pg (27.0-31.0); MEAN PLATELET VOLUME 12.1 fl (9.6-12.3); PLATELET COUNT AUTOMATED 155 10*3/uL (130-400); RED BLOOD COUNT 2.49 10*6/uL (4.10-5.10); RED CELL DISTRI WIDTH 20.2 % (0-14.5); WHITE BLOOD COUNT 4.2 10*3/uL (4.8-10.8)
[2020-03-31 09:42] LABS: INTERNATIONAL NORM RATIO 1.9 (2.0-3.5)
[2020-03-31 09:46] LABS: TOTAL CELLS COUNTED 100 #CELLS
[2020-03-31 09:47] LABS: PLATELET SUFFICIENCY NORMAL (NORMAL); STOMATOCYTE FEW
[2020-03-31 09:56] LABS: BUN 15 mg/dl (7-24); CHLORIDE 107 mmol/L (98-107); CREATININE 0.73 mg/dL (0.55-1.02); POTASSIUM 4.7 mmol/L (3.5-5.1); SODIUM 141 mmol/L (136-145)
--- NOTE | 2020-03-31 13:05 | NUR ---
Occupational Therapy evaluation completed in ED Hold with full evaluation to follow. Recommend occupational therapy per plan of care and SNF upon discharge. Thank you for this referral. Ailin Isbell OTR/L
--- NOTE | 2020-03-31 13:05 | NUR ---
PHYSICAL THERAPY Physical Therapy evaluation completed in ED dept bed G1473-2 with full evaluation to follow. Recommend physical therapy per plan of care and SNF upon discharge. Thank you for this referral. Pam Ponce PT
--- NOTE | 2020-03-31 13:31 | NUR ---
MEDICATIONS REVIEWED WITH PATIENT AND PT .
--- NOTE | 2020-03-31 14:08 | NUR ---
Patient is here for placement to [facility]. Contacted facility and faxed initial referral for review. Requires PT/OT evals, Covid results and precert.
--- NOTE | 2020-03-31 17:21 | NUR ---
PT IN ROOM TALKING TO HER ON PHONE. DENIES NEEDS AT THIS TIME.
--- NOTE | 2020-03-31 20:24 | NUR ---
CALLED 5 AND [facility] RN IS NOT READY FOR THE PATIENT YET.
--- NOTE | 2020-03-31 20:48 | NUR ---
SPOKE WITH [facility] ON THE PHONE AND THEY ARE READY FOR THE PATIENT
--- NOTE | 2020-03-31 21:00 | NUR ---
A 79, admitted to 5E, under the services of HUI Mcdowell DO with a diagnosis of UNABLE TO CARE FOR SELF. Chief complaint is WEAKNESS. Patient arrived via ambulance from ER. Monitor applied. Initial assessment completed. Vital signs taken and recorded. HUI MCDOWELL DO notified of admission to the unit. Orders received. See assessment for past medical history, medications and allergies. Patient and/or family oriented to unit. visitation policy reviewed. Clothing/patient valuable form completed. KIA PARADA
--- NOTE | 2020-03-31 21:00 | NUR ---
PT IV DISLODGED. CATHETER INTACT. BLEEDING CONTROLLED.
[2020-04-01] VITALS: BP 149/46
--- NOTE | 2020-04-01 06:05 | NUR ---
BEDSIDE BGM OBTAINED. RESULT 142. NO INSULIN COVERAGE REQUIRED PER EMAR SLIDING SCALE. PT. IS ASYMPTOMATIC. SKIN IS WARM AND DRY. NO S/S NOTED.
[2020-04-01 06:15] LABS: MEAN CELL VOLUME 102.5 fl (81.0-99.0); MEAN CORPUSCULAR HGB 32.8 pg (27.0-31.0); PLATELET COUNT AUTOMATED 159 10*3/uL (130-400); RED BLOOD COUNT 2.44 10*6/uL (4.10-5.10); RED CELL DISTRI WIDTH 19.7 % (0-14.5); WHITE BLOOD COUNT 4.1 10*3/uL (4.8-10.8)
[2020-04-01 06:24] LABS: INTERNATIONAL NORM RATIO 1.7 (2.0-3.5)
[2020-04-01 07:01] LABS: OVALOCYTES FEW; PLATELET SUFFICIENCY NORMAL (NORMAL); TOTAL CELLS COUNTED 100 #CELLS
[2020-04-01 08:00] VITALS: BP 170/68
--- NOTE | 2020-04-01 08:05 | NUR ---
OT NOTE Nursing screen received. Patient is currently on OT caseload. Thank you. Ailin Isbell, OTR/L
--- NOTE | 2020-04-01 08:06 | NUR ---
PHYSICAL THERAPY Screen received pt has already been evaluated and is on caseload thank you Pam Ponce PT
--- NOTE | 2020-04-01 09:00 | NUR ---
Computer Teacher in to talk to patient. Patient states lives at home with . There are no steps in the home. There are few outside steps. Physician: Dr. Collins Ghosh [facility] [place] [facility] services: none Patient's level of ADLs: MINIMAL ASSIST Patient has working utilities: all working DME: walker Follow-up physician's appointment after d/c: will be made by the hospitalist nurse director upon discharge Does patient want to access PORTAL?: no Discharge plan discussed with patient. She lives at home with her . She states she needs assistance with her ADLs and ambulates with a walker. Discussed short term rehab and she is agreeable. When provided with a list of facilities she chose [facility]. COVID pending. make up worker following. SANIA HACKETT
--- NOTE | 2020-04-01 10:15 | NUR ---
PHYSICAL THERAPY Patient presented to therapy in supine in bed with head of bed elevated and bed alarm on. Patient gives informed consent for treatment. Patient was identified by name and on wristband. Patient has no IVs and she does have a catheter. Patient performed supine to sitting on EOB by rolling to the R side and then side-lying to sitting on EOB with MIN A X 1. Patient sat on EOB with CGA- MIN A X 1 to keep patient from leaning to the R side in sitting AND TO PREVENT RETROGRADE LEAN WELL. Patient completed STS from EOB with MIN A X 2 with verbal cues for proper technique. Patient standing tolerance at Walker with CGA X 2 for 1 min 30 sec the 1st attempt and 45 sec the 2nd attempt. Patient ambulated to bedside chair with Walker and CGA 6' X 1 WITH CONSTANT VERBAL CUES for upright posture, head up, pushing down on walker with hands and increasing step length. Patient with very slow movements. Patient Patient sat in bedside chair with CGA and verbal cues for putting hands back on armrests of chair. Patient STS out of bedside chair with MIN A X 2. Patient was left in bedside chair with call light within reach, chair alarm tested and attached to patient and LEs in low position. Patient was 1:1 with this URBAN REDEVELOPMENT SPECIALIST for 23 minutes total. YARELI ISAAC URBAN REDEVELOPMENT SPECIALIST
--- NOTE | 2020-04-01 10:18 | NUR ---
OT NOTE Pt was seen this A.M. 1:1 for 28 minute OT session. Upon arrival pt was supine in bed. Pt identified by name and and had no complaints at this time. Pt transferred supine to sit EOB with Raven. While sitting EOB challenged pt's static unsupported sitting balance and pt was able to maintain F-/P+ sitting balance requiring min-modA to correct R lateral lean and retrograde posture. Sit to stand completed from bed level with Raven X 2 and use of w/w for UE support. Challenged pt's static standing tolerance and pt was initally able to tolerate aprox 20 seconds and then second attempt was able to tolerate aprox 90 seconds. Throughout static standing pt required constant verbal prompts for correcting her posture due to being forward flexed and presenting with R lateral lean. After a seated rest break functional mobility was completed to the recliner with Raven and use of w/w, assist required for sequencing the walker and correcting retrograde posture. Pt then completed multiple sit to stands from chair level with Raven X 2 and use of w/w. Pt was educated on technique and proper hand placement for increased I. Challenged pt's standing tolerance again and pt was able to tolerate aprox 45-60 seconds at a time. Throughout all static standing pt continued to present with retrograde LOB, poor posture, and R lateral lean that required Raven to correct. Pt was left sitting upright in the recliner with call light in hand, tray table in place, and body alarm activated for safety. Continue with rec D/C plan to SNF. MARIA ELENA Okeefe
[2020-04-01 12:00] VITALS: BP 162/70
--- NOTE | 2020-04-01 12:08 | NUR ---
Patient has been accepted to [facility], precert started. Must have negative covid prior to discharge.
--- NOTE | 2020-04-01 15:23 | NUR ---
PHYSICAL THERAPY CO-SIGN I approve of the Phyical Therapy notes written above. Pam Ponce PT
--- NOTE | 2020-04-01 15:36 | NUR ---
OCCUPATIONAL THERAPY CO-SIGN I approve of the Occupational Therapy notes written above. MCKAY MCDANILE, OTR/L
[2020-04-01 16:00] VITALS: BP 135/53
--- NOTE | 2020-04-01 16:35 | NUR ---
Pt called in, provided password. Updated on pt and plan of care.
[2020-04-01 20:00] VITALS: BP 139/54
[2020-04-02] VITALS: BP 139/50
--- NOTE | 2020-04-02 00:53 | NUR ---
24 HR chart check completed.
[2020-04-02 08:00] VITALS: BP 135/60
[2020-04-02 09:52] LABS: INTERNATIONAL NORM RATIO 2.7 (2.0-3.5)
[2020-04-02 12:00] VITALS: BP 127/70
--- NOTE | 2020-04-02 12:16 | NUR ---
Pt incontient of large amount of formed and liquid stool. Cleansed well and assisted up out of bed to chair. Pt very unsteady with transfer.
[2020-04-02] MEDS ORDERED: WARFARIN SOD5 MG PO (12:30)
--- NOTE | 2020-04-02 13:13 | NUR ---
Returned from lunch. Pt has dc order. Joi RN states that she spoke with Rajni at [facility] and she states that pt is ok to come today. Joi states she notified Dr. Levi.
--- NOTE | 2020-04-02 13:25 | NUR ---
Report called to Jena nursing centrifugal supervisor at [facility].
--- NOTE | 2020-04-02 13:49 | NUR ---
PT Gurmeet notified that we have received approval from [facility] and that pt is going to be dc today with a 3 pm sweet pickle maker time.
--- NOTE | 2020-04-02 14:06 | NUR ---
Clarke removed prior to dc to [facility].
--- NOTE | 2020-04-02 15:05 | NUR ---
Reshma here to crop picker pt for dc to [facility]. Discharged in care of ambulance service.
== END 2020-04-02 15:05 | disposition other institution (70) ==
LOC: ED 18:27 → 5E 20:20 → EDHOLD 20:20 → 5E 03-31 20:01 → EDHOLD 03-31 20:01 → 5E 04-02 15:05
PROVIDERS: Hospitalist; Internal Medicine; Nurse Practitioner Family; ADMIT Internal Medicine; ATTEND Internal Medicine
DX: R53.1 Weakness (principal); E43 Unspecified severe protein-calorie malnutrition; Z78.9 Other specified health status; D53.9 Nutritional anemia, unspecified; E11.42 Type 2 diabetes mellitus with diabetic polyneuropathy; Z79.4 Long term (current) use of insulin; E03.9 Hypothyroidism, unspecified; D72.819 Decreased white blood cell count, unspecified; R74.01 Elevation of levels of liver transaminase levels; E11.65 Type 2 diabetes mellitus with hyperglycemia; I10 Essential (primary) hypertension; E78.5 Hyperlipidemia, unspecified

== ENCOUNTER 2020-04-18 11:02 | Observation (INO) | payer MEDICARE ==
[~2020-04-18] VITALS: Ht 157.4 cm; Wt 74.6 kg
[~2020-04-18 11:02] MED LIST changes: +WARFARIN SOD5 MG PO
[2020-04-18 11:03] VITALS: BP 140/50
[2020-04-18 12:11] LABS: HEMATOCRIT 25.1 % (37.0-47.0); MEAN CELL VOLUME 108.2 fl (81.0-99.0); MEAN CORPUSCULAR HGB 33.6 pg (27.0-31.0); MEAN CORPUSCULAR HGB CONC 31.1 g/dl (33.0-37.0); MEAN PLATELET VOLUME 12.4 fl (9.6-12.3); PLATELET COUNT AUTOMATED 315 10*3/uL (130-400); RED BLOOD COUNT 2.32 10*6/uL (4.10-5.10); RED CELL DISTRI WIDTH 22.5 % (0-14.5)
[2020-04-18 12:30] LABS: ALBUMIN 2.8 gm/dl (3.1-4.5); CREATININE 1.96 mg/dL (0.55-1.02)
[2020-04-18 12:31] LABS: BILIRUBIN Negative (Negative); BLOOD 1+ (Negative); CLARITY Turbid (Clear); COLOR Yellow (Yellow); GLUCOSE Negative (Negative); KETONE Negative (Negative); LEUKO ESTERASE 3+ (Negative); NITRITE Positive (Negative); PH 6.5 (4.5-8.0); UROBILINOGEN 0.2 E.U./dl (0.0-1.0)
[2020-04-18 12:33] LABS: TROPONIN I 0.021 ng/ml (<0.045)
[2020-04-18 12:36] LABS: PLATELET SUFFICIENCY NORMAL (NORMAL); TOTAL CELLS COUNTED 100 #CELLS
--- NOTE | 2020-04-18 12:42 | NUR ---
PT'S SPOUSE SAMMY CALLED FOR AN UPDATE OF PT'S CONDITION, PT TO CALL BACK LATER FOR INFORMATION.PT POSITIONED FOR COMFORT WITH SAFETY PRECAUTIONS INTACT AND CALL LIGHT WITHIN REACH.
[2020-04-18 12:51] LABS: BACTERIA 4+; WBC TNTC wbc/hpf (0-5)
[2020-04-18 13:23] VITALS: BP 148/57
[2020-04-18 15:42] VITALS: BP 130/50
--- NOTE | 2020-04-18 16:50 | NUR ---
SPOKE WITH SAMMY, PTs . GAVE HIM A UPDATE AND THAT PT IS ADMITTED.
--- NOTE | 2020-04-18 17:59 | NUR ---
PT RESTING IN BED W/O DISTRESS. SAFETY PRECAUTIONS IN PLACE.
--- NOTE | 2020-04-18 18:05 | NUR ---
SPOKE WITH DR. FLORES PER CONSULT. GAVE VO FOR VIT K 5MG PO AT THIS TIME.
--- NOTE | 2020-04-18 18:50 | NUR ---
DR. FLORES IN ROOM TO TALK WITH PT.
[2020-04-18 20:13] VITALS: BP 133/67
--- NOTE | 2020-04-18 21:00 | NUR ---
REPORT FROM [facility].
[2020-04-19] VITALS (11 sets, daily range): BP systolic 101–150; BP diastolic 40–85
--- NOTE | 2020-04-19 00:30 | NUR ---
NURSE TO NURSE REPORT GIVEN TO THIS RN.
--- NOTE | 2020-04-19 02:38 | NUR ---
PT RESTING IN BED WITH EYES CLOSED.HEPLOCK IN PLACE.
[2020-04-19 05:48] LABS: CREATININE 1.64 mg/dL (0.55-1.02); POTASSIUM 4.6 mmol/L (3.5-5.1)
--- NOTE | 2020-04-19 06:34 | NUR ---
PT BRIEF CHANGED.PT MEDICATED PER EMAR.PT PO MEDICATIONS NOT GIVEN AT THIS TIME DUE TO PT NPO STATUS.VITALS REASSESSED.
[2020-04-19 06:37] LABS: INTERNATIONAL NORM RATIO 4.1 (2.0-3.5)
[2020-04-19 07:53] LABS: HEMATOCRIT 22.8 % (37.0-47.0); MEAN CELL VOLUME 105.6 fl (81.0-99.0); MEAN CORPUSCULAR HGB 33.3 pg (27.0-31.0); MEAN CORPUSCULAR HGB CONC 31.6 g/dl (33.0-37.0); MEAN PLATELET VOLUME 13.1 fl (9.6-12.3); PLATELET COUNT AUTOMATED 273 10*3/uL (130-400); RED BLOOD COUNT 2.16 10*6/uL (4.10-5.10); RED CELL DISTRI WIDTH 22.8 % (0-14.5); WHITE BLOOD COUNT 14.4 10*3/uL (4.8-10.8)
[2020-04-19 08:41] LABS: OVALOCYTES FEW; PLATELET SUFFICIENCY NORMAL (NORMAL); POLYCHROMASIA SLIGHT; ROULEAUX SLIGHT; STOMATOCYTE FEW; TOTAL CELLS COUNTED 100 #CELLS
--- NOTE | 2020-04-19 08:45 | NUR ---
0730- HAND OFF RECEIVED FROM CRISTOPHER CAMPOS 0800- INITIAL CONTACT WITH PT. ALERT TO PERSON AND PLACE. SKIN WARM TO TOUCH. 98.3 TEMPORAL. PALE IN COLOR. RESPIRATIONS EVEN AND UNLABORED. LS DEMINISHED. DENYING ANY CURRENT PAINS AT TIME. NO DISTRESS NOTED. CALL FRAUSTO IN REACH. BED LOCKED AND LOW. CONTINUING TO MONITOR.
--- NOTE | 2020-04-19 09:00 | NUR ---
Time: 899 A 79 year old FEMALE admitted to 5E under services of DR. ALPA FRANCO,CONSTANCE. Pt. arrived via bed from ER. Chief complaint: UTI, ANEMIA, RENAL INSUFFICIENCT, SEPSIS, ALTERED MENTAL STATUS. RENE ALTMAN
--- NOTE | 2020-04-19 13:20 | NUR ---
Boiler Helper in to see patient in her Room Patient states that she Lives at Home with her but has recently been at [facility] for Therapy SNF There are No steps in the Home and No Steps at [facility] Physician: Dr. Collins Ghosh Pharmacy: [facility] services: None Patient's level of ADLs: Minimal Assist Patient has working utilities: All Working DME: Walker Follow-up physician's appointment after d/c:Will be made by Hospitalist Nurse Director upon Discharge. Does patient want to access PORTAL?: No Discharge plan Discussed with patient. She Lives at Home Normally with her . She needs assistance with ADL's and Ambulates with a walker. She is currently Short Term Rehab at [facility] and asked to return there for Therapy. Boiler Helper will follow. VALENTINA PARK LPN
--- NOTE | 2020-04-19 13:40 | NUR ---
Occupational Therapy evaluation completed on five with full evaluation to follow. Recommend occupational therapy per plan of care and SNF upon discharge. Thank you for this referral. Ailin Isbell OTR/L
--- NOTE | 2020-04-19 14:23 | NUR ---
PHYSICAL THERAPY Physical therapy evaluation completed. Full details and evaluation to follow. High complexity skilled PT evaluation performed [id number]. PT will work on bed mobility, transfers, strength, gait, AD usage, balance and safety per POC. Recommend SNF at discharge. Madeleine Pete PT DPT
--- NOTE | 2020-04-19 21:20 | NUR ---
DR FLORES CALLED REGARDING TAKING PT TO OR. RN UNAWARE THAT PT WAS GOING TO OR FOR EGD THIS WAS NEVER DISCUSSED SINCE PT WAS TO RECEIVE [facility] FOR INR OF 4.1.
--- NOTE | 2020-04-19 22:20 | NUR ---
DR FLORES CALLED THE FLOOR TO TAKE THE PT TO OR. RN WAS UNAWARE THAT THE PT WAS STILL GOING TO THE OR THIS WAS NOT COMMUNICATED TO RN. PT HAD NOT YET STARTED TO RECEIVE [facility] RN HAD JUST RETURNED TO THE FLOOR WITH [facility] TO INFUSE. DR TOSCANO AND OR STAFF CAME TO FLOOR TO GET PT. RN UNABLE TO SCAN [facility] DUE TO DR FLORES WANTING TO TAKE PT TO OR. RN INSPECTOR WATER POLLUTION CONTROL WITNESSED AND IS AWARE OF SITUATION. DR FLORES WAS UPSET AND CALLED BLOOD BANK TO SEE WHY [facility] HAD NOT YET BEEN TRANSFUSED.
--- NOTE | 2020-04-19 23:30 | NUR ---
PT RETURNED TO THE FLOOR FROM OR FOR EGD. PER REPORT PT WAS FOUND TO HAVE A HIATAL HERNIA AND GASTRITIS BUT NO ACTIVE BLEED. PT RETURNED AND [facility] WAS ALREADY COMPLETED WITH NO TIME GIVEN ON WHEN IT WAS COMPLETED. WILL GONZÁLEZ THIS END TIME AND FOLLOW UP WITH VITAL SIGNS PER POLICY.
[2020-04-20] VITALS (16 sets, daily range): BP systolic 126–153; BP diastolic 45–86
--- NOTE | 2020-04-20 06:05 | NUR ---
BS 127
[2020-04-20 06:44] LABS: HEMATOCRIT 21.8 % (37.0-47.0); MEAN CORPUSCULAR HGB 33.5 pg (27.0-31.0); MEAN CORPUSCULAR HGB CONC 30.3 g/dl (33.0-37.0); MEAN PLATELET VOLUME 12.2 fl (9.6-12.3); PLATELET COUNT AUTOMATED 249 10*3/uL (130-400); RED BLOOD COUNT 1.97 10*6/uL (4.10-5.10); RED CELL DISTRI WIDTH 22.4 % (0-14.5); WHITE BLOOD COUNT 10.3 10*3/uL (4.8-10.8)
[2020-04-20 06:47] LABS: MEAN CELL VOLUME 110.7 fl (81.0-99.0)
[2020-04-20 06:50] LABS: INTERNATIONAL NORM RATIO 1.3 (2.0-3.5)
[2020-04-20 06:54] LABS: CREATININE 1.17 mg/dL (0.55-1.02); POTASSIUM 3.8 mmol/L (3.5-5.1)
[2020-04-20 08:03] LABS: PLATELET SUFFICIENCY NORMAL (NORMAL); POLYCHROMASIA SLIGHT; ROULEAUX SLIGHT; STOMATOCYTE FEW; TOTAL CELLS COUNTED 100 #CELLS
--- NOTE | 2020-04-20 08:46 | NUR ---
IVf dc per orders.
--- NOTE | 2020-04-20 09:30 | NUR ---
PHYSICAL THERAPY Patient seen this am 1:1 for therapy visit and was just finishing breakfast, upon therapist arrival. Patient identified by name / and joined by OT security assistant for observation this session. Patient was a little "foggy" mentally this moring and needed multipile v/c's to complete all task. Patient presented with continuos O2-2.5L via NC and IV treatment, voicing no c/o's pain at this time. Patient transfers supine to sit EOB with MAX A x 2, tolerating approx 8 minutes static EOB sit, MIN/CGA. Patient demonstrated severe L side lean, unable to self correct, requirng MOD therapist assist to return to neutral seated position. Patient performed rocking motion fwd/bkwd, however fatigues quickly and returned to supine in bed MAX A x 2. Patient remained in bed with call light, tray table and bed alarm for safety. Will continue per POC as tolerated, total treatment time 17 minutes. Hilton Garay, GRINDER [employer]
--- NOTE | 2020-04-20 09:45 | NUR ---
OT NOTE Pt was seen this A.M. 1:1 for 25 minute OT session. Upon arrival pt was supine in bed. Pt identified by name and and had no complaints at this time. Pt presented to therapy with continuous 2L-O2 via NC which she remained on throughout the entire session. Pt transferred supine to sit EOB with maxA X 2. While sitting EOB pt presented with P+ sitting balance requiring modA to correct retrograde and L lateral lean. Pt was able to maintain upright posture with SBA for aprox 10-15 seconds before requiring modA to correct. Pt tolerated sitting EOB for aprox 10 minutes before laying back. Pt transferred sit to supine with maxA X 2. While supine in bed pt completed BUE ther ex over all planes with min resistance for 1 X 10 to increase and restore maximum functional strength. Pt was left supine in bed with call light in hand, tray table in place, and bed alarm activated for safety. Continue with rec D/C plan to SNF. MARIA ELENA Okeefe
--- NOTE | 2020-04-20 15:04 | NUR ---
Clinical Updates faxed to [facility] Attn: Nelsy [phone].
--- NOTE | 2020-04-20 17:32 | NUR ---
PHYSICAL THERAPY CO-SIGN I approve of the Physical Therapy notes written above. SANIA PLAZA PT, DPT
[2020-04-21] VITALS: BP 138/57
--- NOTE | 2020-04-21 04:51 | NUR ---
PT RESTING IN BED/ NO DISTRESS NOTED. WILL MONITOR
[2020-04-21 07:14] LABS: HEMATOCRIT 27.2 % (37.0-47.0); MEAN CELL VOLUME 102.6 fl (81.0-99.0); MEAN CORPUSCULAR HGB 32.5 pg (27.0-31.0); MEAN CORPUSCULAR HGB CONC 31.6 g/dl (33.0-37.0); MEAN PLATELET VOLUME 12.1 fl (9.6-12.3); PLATELET COUNT AUTOMATED 241 10*3/uL (130-400); RED BLOOD COUNT 2.65 10*6/uL (4.10-5.10); RED CELL DISTRI WIDTH 23.6 % (0-14.5); WHITE BLOOD COUNT 10.3 10*3/uL (4.8-10.8)
[2020-04-21 07:26] LABS: INTERNATIONAL NORM RATIO 1.2 (2.0-3.5)
--- NOTE | 2020-04-21 07:37 | NUR ---
Discussed discharge planning with Dr. Estrada. Plan is to discharge patient tomorrow to [facility] if medically stable. COVID is pending.
[2020-04-21 08:29] LABS: OVALOCYTES FEW; PLATELET SUFFICIENCY NORMAL (NORMAL); SCHISTOCYTES FEW; TOTAL CELLS COUNTED 100 #CELLS
[2020-04-21 08:30] LABS: ROULEAUX SLIGHT
--- NOTE | 2020-04-21 09:40 | NUR ---
PHYSICAL THERAPY Patient seen this am 1:1 for therapy visit and was relaxing supine in bed upon therapist arrival. Patient identified by name / and joined by OT academic assistant for observation this session. Patient presented with increased clarity, was quite pleasant, recording SpO2 90%, HR 82 prior to transfering supine to sit EOB with MOD A x 2. Patient tolerated 4-5 minutes static EOB sit, CGA and demonstrated improved static sit balance with less L side lean. Patient able to maintain upright, neutral position with minimal v/c's. Patient completed several sit to stand transfers, use of wh walker standing support, MIN A x 2, tolerating approx 30 seconds static stand each trial with quick onset of fatigue. Will continue per POC as tolerated, total treatment time 15 minutes. Hilton Garay, MANAGER PHILOSOPHY
--- NOTE | 2020-04-21 09:45 | NUR ---
OT NOTE Pt was seen this A.M. 1:1 for 15 minute OT session. Upon arrival pt was supine in bed. Pt identified by name and and had no complaints at this time. Pt transferred supine to sit EOB with modA X 2 for assist with both upper body and BLE's. While sitting EOB pt presented with F sitting balance this session requiring SBA with occasional modA to correct retrograde and L lateral lean. Pt completed three sit to stand transfers from bed level with Raven X 2 and use of w/w for UE support. Challenged pt's static standing tolerance needed for increased I in self care tasks and functional transfers. Pt was able to tolerate aprox 30 seconds at a time before sitting due to fatigue. While standing pt presented with retrograde posture that required modA to correct. Pt transferred back into bed sit to supine with modA X 2. There she was left with call light in hand, tray table in place, and bed alarm activated for safety. Continue with rec D/ Cplan to SNF. PILO Okeefe/Darren
--- NOTE | 2020-04-21 10:34 | NUR ---
SPEECH PATHOLOGY Pt seen for bedside swallow evaluation per order. Pt presented to this facility from [facility] with AMS. Dysphagia eval ordered d/t possible aspiration; warranted to assess swallow function and determine least restrictive diet. This RETAIL MARKETING COORDINATOR ID'd pt via wristband prior to initiating dysphagia eval. Pt alert and cooperative, but confused and oriented to self only. Pt seated upright in bed at approx 90 degrees. CN exam WNL. Pt unable to complete 3 oz water protocol secondary to confusion; pt holding bolus in oral cavity for 3-6 seconds prior to swallowing. However, swallow appeared functional at bedside with pt presenting with throat clear in 1/10 trials; would not consider this abnormal. This RETAIL MARKETING COORDINATOR does not suspect aspiration at this time. Mastication and oral clearance of regular textured trial WFL. See full report for details. RECOMMENDATIONS: REGULAR DIET/THIN LIQUIDS -SEAT PT UPRIGHT FOR MEALS -MONITOR PT WITH PILLS D/T ORAL HOLDING, LIKELY SECONDARY TO AMS This RETAIL MARKETING COORDINATOR communicated recommendations with RNMoises. Moises verbalized understanding. This department is available for re-consult should pt status change. Thank you for this referral! ELISEO KLEIN M.A. [facility]-RETAIL MARKETING COORDINATOR
--- NOTE | 2020-04-21 11:50 | NUR ---
Precert Started for [facility]. Covid Swab Pending.
[2020-04-21 12:00] VITALS: BP 108/52
[2020-04-21 16:00] VITALS: BP 110/58
--- NOTE | 2020-04-21 19:26 | NUR ---
Spoke with Pt daughter Joya and updated on plan of care. Reviewed progress note of Dr. Estrada with her.
[2020-04-21 20:00] VITALS: BP 142/50
[2020-04-22] VITALS: BP 137/52
--- NOTE | 2020-04-22 02:21 | NUR ---
PT ASLEEP IN BED. NO S/S OF DISTRESS NOTED. WILL MONITOR. CALL LIGHT IN REACH. BED ALARM INTACT.
--- NOTE | 2020-04-22 04:00 | NUR ---
PT ASLEEP IN BED, EASILY AROUSABLE. DENIES ANY NEEDS. WILL MONITOR. CALL LIGHT IN REACH.
--- NOTE | 2020-04-22 06:43 | NUR ---
NOTIFIED OF PT'S C/O BACK PAIN. NO PRN ORDERS FOR PAIN. NEW ORDER RECEIVED FOR PO TYLENOL 650 MG Q6H PRN.
[2020-04-22 07:08] LABS: HEMATOCRIT 26.8 % (37.0-47.0); MEAN CELL VOLUME 102.3 fl (81.0-99.0); MEAN CORPUSCULAR HGB 32.4 pg (27.0-31.0); MEAN CORPUSCULAR HGB CONC 31.7 g/dl (33.0-37.0); PLATELET COUNT AUTOMATED 230 10*3/uL (130-400); RED BLOOD COUNT 2.62 10*6/uL (4.10-5.10); RED CELL DISTRI WIDTH 22.5 % (0-14.5); WHITE BLOOD COUNT 9.2 10*3/uL (4.8-10.8)
[2020-04-22 07:22] LABS: BUN 26 mg/dl (7-24); CHLORIDE 104 mmol/L (98-107); CREATININE 0.83 mg/dL (0.55-1.02); POTASSIUM 3.7 mmol/L (3.5-5.1); SODIUM 137 mmol/L (136-145)
[2020-04-22 08:00] VITALS: BP 154/49
[2020-04-22 08:50] LABS: PLATELET SUFFICIENCY NORMAL (NORMAL); TOTAL CELLS COUNTED 100 #CELLS
[2020-04-22 12:00] VITALS: BP 132/43
[2020-04-22] MEDS ORDERED: CEFUROXIME AXE250 MG PO (13:33)
--- NOTE | 2020-04-22 18:29 | NUR ---
Discharge instructions reviewed with patient/family. Patient receptive and verbalizes understanding. Follow-up care arranged. Written instructions given to patient/family. EMILY SMITH
--- NOTE | 2020-04-25 07:35 | NUR ---
PHYSICAL THERAPY CO-SIGN I approve of the Physical Therapy notes written above. SANIA PLAZA PT, DPT
--- NOTE | 2020-04-25 07:46 | NUR ---
OCCUPATIONAL THERAPY CO-SIGN I approve of the Occupational Therapy notes written above. MCKAY MCDANIEL, OTR/L
== END 2020-04-22 19:23 | disposition other institution (70) ==
LOC: ED 11:02 → EDHOLD 14:44 → 5E 14:44 → EDHOLD 14:44 → 5E 04-19 07:29
PROVIDERS: Emergency Medicine; ADMIT Internal Medicine; ATTEND Internal Medicine
DX: K25.9 Gastric ulcer, unspecified as acute or chronic, without hemorrhage or perforation (principal); K57.92 Diverticulitis of intestine, part unspecified, without perforation or abscess without bleeding; K44.9 Diaphragmatic hernia without obstruction or gangrene; E11.9 Type 2 diabetes mellitus without complications; D50.0 Iron deficiency anemia secondary to blood loss (chronic); N39.0 Urinary tract infection, site not specified; E03.9 Hypothyroidism, unspecified; I25.2 Old myocardial infarction; G93.41 Metabolic encephalopathy; Z20.828 Contact with and (suspected) exposure to other viral communicable diseases

== ENCOUNTER 2020-05-30 11:53 | Observation (INO) | payer MEDICARE, MEDICAID ==
[~2020-05-30] VITALS: Ht 157.4 cm; Wt 73.8 kg
[2020-05-30] VITALS (18 sets, daily range): BP systolic 125–165; BP diastolic 44–89
[~2020-05-30 11:53] MED LIST changes: +CEFUROXIME AXE250 MG PO
[2020-05-30 12:48] LABS: MEAN CELL VOLUME 108.2 fl (81.0-99.0); MEAN CORPUSCULAR HGB 33.5 pg (27.0-31.0); MEAN PLATELET VOLUME 11.8 fl (9.6-12.3); PLATELET COUNT AUTOMATED 223 10*3/uL (130-400); RED BLOOD COUNT 1.82 10*6/uL (4.10-5.10); RED CELL DISTRI WIDTH 21.6 % (0-14.5); WHITE BLOOD COUNT 9.1 10*3/uL (4.8-10.8)
[2020-05-30 12:53] LABS: HEMATOCRIT 19.7 % (37.0-47.0)
[2020-05-30 12:59] LABS: ACT PARTIAL THROMBO TIME 26.2 SECONDS (20.0-32.1); INTERNATIONAL NORM RATIO 1.1 (2.0-3.5)
[2020-05-30 13:03] LABS: ALBUMIN 3.2 gm/dl (3.1-4.5); CREATININE 1.19 mg/dL (0.55-1.02); POTASSIUM 3.6 mmol/L (3.5-5.1); TOTAL PROTEIN 7.7 gm/dL (6.4-8.2); TROPONIN I 0.017 ng/ml (<0.045)
[2020-05-30 13:09] LABS: PLATELET SUFFICIENCY NORMAL (NORMAL); TOTAL CELLS COUNTED 100 #CELLS
[2020-05-30 14:06] LABS: FERRITIN 455.3 ng/mL (10.0-291.0)
[2020-05-30] MEDS ORDERED: LATANOPROST2.5 ML OP (18:49)
[2020-05-31] VITALS: BP 177/64
[2020-05-31 07:12] LABS: BASO % 0.1 % (0.0-1.0); EOS # 0.3 10*3/uL (0.0-0.4); EOS % 2.8 % (1.0-4.0); HEMATOCRIT 27.5 % (37.0-47.0); LYMPH # 1.1 10*3/uL (1.3-4.4); LYMPH % 11.2 % (27.0-41.0); MEAN CORPUSCULAR HGB 32.4 pg (27.0-31.0); MEAN CORPUSCULAR HGB CONC 32.7 g/dl (33.0-37.0); MEAN PLATELET VOLUME 12.2 fl (9.6-12.3); MONO # 3.5 10*3/uL (0.1-1.0); MONO % 35.5 % (3.0-9.0); NEUT # 4.7 10*3/uL (2.3-7.9); PLATELET COUNT AUTOMATED 230 10*3/uL (130-400); RED BLOOD COUNT 2.78 10*6/uL (4.10-5.10); RED CELL DISTRI WIDTH 20.3 % (0-14.5); WHITE BLOOD COUNT 9.8 10*3/uL (4.8-10.8)
[2020-05-31 07:17] LABS: MEAN CELL VOLUME 98.9 fl (81.0-99.0)
[2020-05-31 07:26] LABS: BASOPHILS 1 % (0-1); OVALOCYTES FEW; PLATELET SUFFICIENCY NORMAL (NORMAL); TOTAL CELLS COUNTED 100 #CELLS
[2020-05-31 08:00] VITALS: BP 175/66
== END 2020-05-31 12:30 ==
LOC: ED 11:53 → EDHOLD 14:54 → 5E 15:43
PROVIDERS: Emergency Medicine; ADMIT Internal Medicine; ATTEND Internal Medicine
DX: D64.9 Anemia, unspecified (principal); K92.2 Gastrointestinal hemorrhage, unspecified; E11.9 Type 2 diabetes mellitus without complications; I25.10 Atherosclerotic heart disease of native coronary artery without angina pectoris; E03.9 Hypothyroidism, unspecified; R62.7 Adult failure to thrive; Z95.5 Presence of coronary angioplasty implant and graft; Z90.710 Acquired absence of both cervix and uterus; Z98.890 Other specified postprocedural states; Z20.828 Contact with and (suspected) exposure to other viral communicable diseases

== ENCOUNTER 2020-06-22 15:11 | Observation (INO) | payer MEDICARE, MEDICAID ==
[~2020-06-22] VITALS: Ht 157.4 cm; Wt 70.8 kg
[~2020-06-22 15:11] MED LIST changes: +LATANOPROST2.5 ML OP
[2020-06-22 15:13] VITALS: BP 156/63
[2020-06-22 15:39] LABS: HEMATOCRIT 24.2 % (37.0-47.0); MEAN CELL VOLUME 103.9 fl (81.0-99.0); MEAN CORPUSCULAR HGB 33.9 pg (27.0-31.0); MEAN CORPUSCULAR HGB CONC 32.6 g/dl (33.0-37.0); PLATELET COUNT AUTOMATED 181 10*3/uL (130-400); RED BLOOD COUNT 2.33 10*6/uL (4.10-5.10); RED CELL DISTRI WIDTH 18.7 % (0-14.5); WHITE BLOOD COUNT 10.3 10*3/uL (4.8-10.8)
[2020-06-22 15:56] LABS: PLATELET SUFFICIENCY NORMAL (NORMAL); TOTAL CELLS COUNTED 100 #CELLS
[2020-06-22 15:57] LABS: ALBUMIN 3.5 gm/dl (3.1-4.5); ALKALINE PHOSPHATASE 79 U/L (45-117); BUN 20 mg/dl (7-24); CHLORIDE 102 mmol/L (98-107); CREATININE 0.99 mg/dL (0.55-1.02); LIPASE 64 U/L (73-393); POTASSIUM 3.8 mmol/L (3.5-5.1); SGOT/AST 10 IU/L (3-35); SGPT/ALT 9 U/L (12-78); SODIUM 139 mmol/L (136-145); TOTAL PROTEIN 8.1 gm/dL (6.4-8.2)
[2020-06-22 15:58] LABS: TROPONIN I < 0.015 ng/ml (<0.045)
[2020-06-22 17:23] LABS: BILIRUBIN Negative (Negative); BLOOD Trace-Lysed (Negative); CLARITY Cloudy (Clear); COLOR Yellow (Yellow); GLUCOSE Negative (Negative); KETONE Negative (Negative); LEUKO ESTERASE 3+ (Negative); NITRITE Negative (Negative); UROBILINOGEN 0.2 E.U./dl (0.0-1.0)
[2020-06-22 17:35] LABS: WBC TNTC wbc/hpf (0-5)
[2020-06-22 18:58] VITALS: BP 161/59
[2020-06-22 23:00] VITALS: BP 150/53
[2020-06-22 23:30] VITALS: BP 153/52
[2020-06-23 02:08] VITALS: BP 150/60
[2020-06-23 03:15] VITALS: BP 144/56
[2020-06-23] MEDS ORDERED: LISINOPRIL10 M1 PO (03:36)
[2020-06-23] MEDS ORDERED: LEVOXYL50 MCG PO (03:44)
[2020-06-23 08:00] VITALS: BP 113/73
[2020-06-23 09:24] LABS: HEMATOCRIT 21.7 % (37.0-47.0); MEAN CELL VOLUME 104.8 fl (81.0-99.0); MEAN CORPUSCULAR HGB 33.8 pg (27.0-31.0); MEAN CORPUSCULAR HGB CONC 32.3 g/dl (33.0-37.0); MEAN PLATELET VOLUME 12.3 fl (9.6-12.3); PLATELET COUNT AUTOMATED 174 10*3/uL (130-400); RED BLOOD COUNT 2.07 10*6/uL (4.10-5.10); RED CELL DISTRI WIDTH 18.7 % (0-14.5); WHITE BLOOD COUNT 7.7 10*3/uL (4.8-10.8)
[2020-06-23 09:57] LABS: OVALOCYTES FEW; PLATELET SUFFICIENCY NORMAL (NORMAL); TOTAL CELLS COUNTED 100 #CELLS
[2020-06-23 09:58] LABS: POLYCHROMASIA SLIGHT; ROULEAUX SLIGHT
[2020-06-23 12:00] VITALS: BP 153/54
[2020-06-23 14:00] VITALS: BP 140/60
[2020-06-23 20:00] VITALS: BP 152/56
[2020-06-24] VITALS (9 sets, daily range): BP systolic 140–173; BP diastolic 47–66
[2020-06-24 06:30] LABS: HEMATOCRIT 22.3 % (37.0-47.0); MEAN CELL VOLUME 106.2 fl (81.0-99.0); MEAN CORPUSCULAR HGB 33.3 pg (27.0-31.0); MEAN CORPUSCULAR HGB CONC 31.4 g/dl (33.0-37.0); MEAN PLATELET VOLUME 12.3 fl (9.6-12.3); PLATELET COUNT AUTOMATED 177 10*3/uL (130-400); RED CELL DISTRI WIDTH 18.7 % (0-14.5); WHITE BLOOD COUNT 8.2 10*3/uL (4.8-10.8)
[2020-06-24 08:22] LABS: TOTAL CELLS COUNTED 100 #CELLS
[2020-06-24 08:26] LABS: OVALOCYTES FEW; PLATELET SUFFICIENCY NORMAL (NORMAL); SCHISTOCYTES FEW
[2020-06-25] VITALS: BP 161/62
[2020-06-25 06:38] LABS: HEMATOCRIT 23.5 % (37.0-47.0); MEAN CORPUSCULAR HGB 32.7 pg (27.0-31.0); MEAN CORPUSCULAR HGB CONC 31.5 g/dl (33.0-37.0); MEAN PLATELET VOLUME 11.9 fl (9.6-12.3); PLATELET COUNT AUTOMATED 189 10*3/uL (130-400); RED BLOOD COUNT 2.26 10*6/uL (4.10-5.10); RED CELL DISTRI WIDTH 18.6 % (0-14.5); WHITE BLOOD COUNT 9.7 10*3/uL (4.8-10.8)
[2020-06-25 07:52] LABS: PLATELET SUFFICIENCY NORMAL (NORMAL); TOTAL CELLS COUNTED 100 #CELLS
[2020-06-25 08:00] VITALS: BP 177/74
[2020-06-25 12:00] VITALS: BP 170/69
[2020-06-25] MEDS ORDERED: HYDR12.5C PO (15:23)
[2020-06-25] MEDS ORDERED: LISINOPRIL20 MG PO (15:23)
[2020-06-25 16:00] VITALS: BP 167/59
== END 2020-06-25 19:09 ==
LOC: ED 15:11 → EDHOLD 19:01 → 5E 19:01
PROVIDERS: Emergency Medicine; Internal Medicine Gastroenterology; ADMIT Internal Medicine; ATTEND Internal Medicine
DX: K29.71 Gastritis, unspecified, with bleeding (principal); K57.32 Diverticulitis of large intestine without perforation or abscess without bleeding; D64.9 Anemia, unspecified; E11.9 Type 2 diabetes mellitus without complications; I25.10 Atherosclerotic heart disease of native coronary artery without angina pectoris; R62.7 Adult failure to thrive; E03.9 Hypothyroidism, unspecified; I10 Essential (primary) hypertension; Z79.4 Long term (current) use of insulin; Z79.899 Other long term (current) drug therapy; Z20.822 Contact with and (suspected) exposure to COVID-19

== ENCOUNTER 2020-07-04 00:09 | Inpatient (IN) | payer MEDICARE, MEDICAID ==
[~2020-07-04] VITALS: Ht 157.4 cm; Wt 68.2 kg
[~2020-07-04 00:09] MED LIST changes: +HYDR12.5C PO; +LEVOXYL50 MCG PO; +LISINOPRIL10 M1 PO; +LISINOPRIL20 MG PO
[2020-07-04 00:15] VITALS: BP 118/81
[2020-07-04 01:22] LABS: HEMATOCRIT 24.1 % (37.0-47.0); MEAN CORPUSCULAR HGB 33.9 pg (27.0-31.0); MEAN CORPUSCULAR HGB CONC 31.1 g/dl (33.0-37.0); MEAN PLATELET VOLUME 12.7 fl (9.6-12.3); PLATELET COUNT AUTOMATED 236 10*3/uL (130-400); RED BLOOD COUNT 2.21 10*6/uL (4.10-5.10); RED CELL DISTRI WIDTH 19.8 % (0-14.5); WHITE BLOOD COUNT 22.2 10*3/uL (4.8-10.8)
[2020-07-04 01:40] LABS: ALBUMIN 3.5 gm/dl (3.1-4.5); ALKALINE PHOSPHATASE 96 U/L (45-117); BUN 39 mg/dl (7-24); CHLORIDE 99 mmol/L (98-107); CREATININE 2.07 mg/dL (0.55-1.02); POTASSIUM 3.4 mmol/L (3.5-5.1); SGOT/AST 7 IU/L (3-35); SGPT/ALT 11 U/L (12-78); SODIUM 136 mmol/L (136-145); TOTAL PROTEIN 8.6 gm/dL (6.4-8.2)
[2020-07-04 01:45] LABS: TROPONIN I < 0.015 ng/ml (<0.045)
[2020-07-04 01:52] LABS: TOTAL CELLS COUNTED 100 #CELLS
[2020-07-04 01:53] LABS: PLATELET SUFFICIENCY NORMAL (NORMAL)
[2020-07-04 02:51] LABS: BILIRUBIN Negative (Negative); BLOOD 2+ (Negative); CLARITY Turbid (Clear); COLOR Yellow (Yellow); GLUCOSE Negative (Negative); KETONE Negative (Negative); LEUKO ESTERASE 3+ (Negative); NITRITE Negative (Negative); PH 5.5 (4.5-8.0); UROBILINOGEN 0.2 E.U./dl (0.0-1.0)
[2020-07-04 03:09] LABS: WBC TNTC wbc/hpf (0-5)
[2020-07-04 04:45] VITALS: BP 125/41
[2020-07-04] MEDS ORDERED: IRON325 M1 PO (04:51)
[2020-07-04] MEDS ORDERED: GLUCAGON EMERGEN1 M1 IJ (04:54)
[2020-07-04] MEDS ORDERED: VITAMIN D350 MC2 PO (04:55)
[2020-07-04] MEDS ORDERED: TYLENOL EXTRA500 MG PO (04:55)
[2020-07-04] MEDS ORDERED: LEVOXYL50 MCG PO (04:57)
[2020-07-04 08:00] VITALS: BP 116/45
[2020-07-04 12:00] VITALS: BP 130/41
[2020-07-04 16:00] VITALS: BP 113/43
[2020-07-04 20:00] VITALS: BP 111/41
[2020-07-05] VITALS (13 sets, daily range): BP systolic 109–155; BP diastolic 40–60
[2020-07-05 06:22] LABS: MEAN CELL VOLUME 108.9 fl (81.0-99.0); MEAN CORPUSCULAR HGB 33.9 pg (27.0-31.0); MEAN CORPUSCULAR HGB CONC 31.1 g/dl (33.0-37.0); MEAN PLATELET VOLUME 12.4 fl (9.6-12.3); PLATELET COUNT AUTOMATED 196 10*3/uL (130-400)
[2020-07-05 06:33] LABS: CREATININE 1.75 mg/dL (0.55-1.02); POTASSIUM 3.3 mmol/L (3.5-5.1)
[2020-07-05 06:58] LABS: TOTAL CELLS COUNTED 100 #CELLS
[2020-07-05 07:00] LABS: OVALOCYTES FEW; PLATELET SUFFICIENCY NORMAL (NORMAL); POLYCHROMASIA SLIGHT
[2020-07-05 07:02] LABS: HEMATOCRIT 19.6 % (37.0-47.0)
[2020-07-05 14:30] LABS: HEMATOCRIT 25.3 % (37.0-47.0); MEAN CORPUSCULAR HGB 32.8 pg (27.0-31.0); MEAN CORPUSCULAR HGB CONC 31.2 g/dl (33.0-37.0); MEAN PLATELET VOLUME 12.5 fl (9.6-12.3); PLATELET COUNT AUTOMATED 201 10*3/uL (130-400); RED BLOOD COUNT 2.41 10*6/uL (4.10-5.10); RED CELL DISTRI WIDTH 21.8 % (0-14.5); WHITE BLOOD COUNT 17.5 10*3/uL (4.8-10.8)
[2020-07-05 15:15] LABS: BURR CELLS FEW; PLATELET SUFFICIENCY NORMAL (NORMAL); TOTAL CELLS COUNTED 100 #CELLS
[2020-07-06] VITALS: BP 125/47
[2020-07-06 06:40] LABS: ALBUMIN 2.8 gm/dl (3.1-4.5); CREATININE 1.09 mg/dL (0.55-1.02); TOTAL PROTEIN 7.5 gm/dL (6.4-8.2)
[2020-07-06 06:50] LABS: HEMATOCRIT 23.8 % (37.0-47.0); MEAN CORPUSCULAR HGB 32.5 pg (27.0-31.0); MEAN CORPUSCULAR HGB CONC 31.5 g/dl (33.0-37.0); MEAN PLATELET VOLUME 12.4 fl (9.6-12.3); PLATELET COUNT AUTOMATED 194 10*3/uL (130-400); RED BLOOD COUNT 2.31 10*6/uL (4.10-5.10); RED CELL DISTRI WIDTH 22.2 % (0-14.5); WHITE BLOOD COUNT 14.9 10*3/uL (4.8-10.8)
[2020-07-06 07:35] LABS: TOTAL CELLS COUNTED 100 #CELLS
[2020-07-06 07:36] LABS: BURR CELLS FEW; OVALOCYTES FEW; PLATELET SUFFICIENCY NORMAL (NORMAL); POLYCHROMASIA SLIGHT; ROULEAUX SLIGHT
[2020-07-06 08:00] VITALS: BP 175/65
[2020-07-06 12:00] VITALS: BP 172/62
[2020-07-06 13:09] VITALS: BP 154/60
[2020-07-06 16:00] VITALS: BP 150/58
[2020-07-06 20:00] VITALS: BP 153/59
[2020-07-07] VITALS: BP 160/59
[2020-07-07 08:00] VITALS: BP 181/69
[2020-07-07 12:00] VITALS: BP 181/62
[2020-07-07 16:00] VITALS: BP 153/68
[2020-07-07 20:00] VITALS: BP 171/65
[2020-07-08] VITALS (10 sets, daily range): BP systolic 158–186; BP diastolic 58–90
[2020-07-08 07:14] LABS: ALBUMIN 2.6 gm/dl (3.1-4.5); ALKALINE PHOSPHATASE 67 U/L (45-117); BUN 9 mg/dl (7-24); CHLORIDE 111 mmol/L (98-107); CREATININE 0.77 mg/dL (0.55-1.02); POTASSIUM 3.6 mmol/L (3.5-5.1); SGOT/AST 10 IU/L (3-35); SGPT/ALT 10 U/L (12-78); SODIUM 142 mmol/L (136-145); TOTAL PROTEIN 6.8 gm/dL (6.4-8.2)
[2020-07-08 07:27] LABS: HEMATOCRIT 23.6 % (37.0-47.0); MEAN CELL VOLUME 102.2 fl (81.0-99.0); MEAN CORPUSCULAR HGB 32.5 pg (27.0-31.0); MEAN CORPUSCULAR HGB CONC 31.8 g/dl (33.0-37.0); MEAN PLATELET VOLUME 11.9 fl (9.6-12.3); PLATELET COUNT AUTOMATED 164 10*3/uL (130-400); RED BLOOD COUNT 2.31 10*6/uL (4.10-5.10); RED CELL DISTRI WIDTH 20.6 % (0-14.5); WHITE BLOOD COUNT 9.1 10*3/uL (4.8-10.8)
[2020-07-08] MEDS ORDERED: MEGACE40 MG PO (07:38)
[2020-07-08] MEDS ORDERED: CIPRO500 MG PO (07:38)
[2020-07-08 07:55] LABS: BURR CELLS FEW; OVALOCYTES FEW; PLATELET SUFFICIENCY NORMAL (NORMAL); ROULEAUX SLIGHT; SCHISTOCYTES FEW; TOTAL CELLS COUNTED 100 #CELLS
== END 2020-07-08 19:20 | DRG 871 ==
LOC: ED 00:09 → 5E 03:54 → EDHOLD 03:54 → 5E 04:22
PROVIDERS: Emergency Medicine; ADMIT Internal Medicine; ATTEND Internal Medicine
PROC: 30233N1 Transfusion of Nonautologous Red Blood Cells into Peripheral Vein, Percutaneous Approach (ICD-10-PCS; principal; 2020-07-05)
PROC: 05HB33Z Insertion of Infusion Device into Right Basilic Vein, Percutaneous Approach (ICD-10-PCS; 2020-07-05)
DX: A41.81 Sepsis due to Enterococcus (principal); G93.41 Metabolic encephalopathy; N39.0 Urinary tract infection, site not specified; N17.9 Acute kidney failure, unspecified; E87.2 Acidosis; E44.1 Mild protein-calorie malnutrition; I47.1 Supraventricular tachycardia; Z20.822 Contact with and (suspected) exposure to COVID-19; R65.20 Severe sepsis without septic shock; R31.9 Hematuria, unspecified; N18.31 Chronic kidney disease, stage 3a; E11.22 Type 2 diabetes mellitus with diabetic chronic kidney disease; E03.9 Hypothyroidism, unspecified; I48.0 Paroxysmal atrial fibrillation; I25.10 Atherosclerotic heart disease of native coronary artery without angina pectoris; K52.9 Noninfective gastroenteritis and colitis, unspecified; D63.8 Anemia in other chronic diseases classified elsewhere; E87.6 Hypokalemia; R62.7 Adult failure to thrive; I12.9 Hypertensive chronic kidney disease with stage 1 through stage 4 chronic kidney disease, or unspecified chronic kidney disease; E78.5 Hyperlipidemia, unspecified; B95.2 Enterococcus as the cause of diseases classified elsewhere; Z88.1 Allergy status to other antibiotic agents; Z88.8 Allergy status to other drugs, medicaments and biological substances; Z90.710 Acquired absence of both cervix and uterus; Z95.2 Presence of prosthetic heart valve; Z83.3 Family history of diabetes mellitus; I25.2 Old myocardial infarction; Z95.1 Presence of aortocoronary bypass graft; Z68.27 Body mass index [BMI] 27.0-27.9, adult

== ENCOUNTER → 2020-07-29 | Outpatient (CLI) | payer MEDICARE, MEDICAID ==
[2020-07-29] VITALS (10 sets, daily range): BP systolic 139–160; BP diastolic 49–72
[~2020-07-29] MED LIST changes: +CIPRO500 MG PO; +GLUCAGON EMERGEN1 M1 IJ; +IRON325 M1 PO; +MEGACE40 MG PO; +TYLENOL EXTRA500 MG PO; +VITAMIN D350 MC2 PO
== END | disposition home or self-care (01) ==
LOC: TRNFUSION 00:51
PROVIDERS: ATTEND Internal Medicine
DX: D64.9 Anemia, unspecified (principal); I10 Essential (primary) hypertension; E11.9 Type 2 diabetes mellitus without complications; G43.909 Migraine, unspecified, not intractable, without status migrainosus; F41.9 Anxiety disorder, unspecified; M19.90 Unspecified osteoarthritis, unspecified site; M10.9 Gout, unspecified; F32.9 Major depressive disorder, single episode, unspecified